=== PATIENT | female | born 1995 | race Two or more races ===

== ENCOUNTER 2022-02-21 11:16 | Emergency (ER) | payer MEDICAID, SELFPAY ==
[2022-02-21 11:24] VITALS: BP 105/66; PULSE 58; RESP 16; TEMP 36.5; O2SAT 96
--- NOTE | 2022-02-21 11:41 | ED_ITS ---
HPI - General Adult General: Chief complaint: Nausea/Vomiting/Diarrhea Stated complaint: , weak and very dizzy Time Seen by Provider: 02/21/22 11:24 History of Present Illness: Patient is a 26-year-old female presenting to the emergency room for evaluation of lower abdominal cramps and nausea/vomiting for the last 3 days. Patient tells me that she recently found out that she was 4 days ago. Since then, patient has noticed lower abdominal pain/cramps. Patient denies any new vaginal plane bleeding or vaginal discharge. Patient also reports nausea vomiting with p.o. intake. Patient tells me that she has not been recording down. Patient denies any sick contacts at home. Denies any fever/chills, diarrhea melena medic easier. Patient denies any urinary complaints at this time. No prior history of renal colic. He denies any flank pain currently. Patient denies any associate chest pain, shortness of breath, headache, vision changes, other focal neurological deficit. Onset:3 days grover Duration:3 days Location:home Severity:mild/moderate Associated symptoms: Reports vomiting; Deny chest pain, dyspnea, nausea, rash or palpitations Review of Systems Const: Denies: fever(s) or chills Eyes: Denies: change in vision ENMT: Denies: mouth pain Card: Denies: chest pain or palpitations Resp: Denies: dyspnea or non-productive cough GI: Reports: abdominal pain (+lower abd pain and cramps), vomiting and other (+decreased po intake); Denies: nausea or diarrhea : Denies: dysuria Musc: Denies: extremity pain Skin/Breast: Denies: rash or new lesions Neuro: Denies: weakness in extremities Psych: Reports: other (Normal mood) Mateo/Lymph: Denies: easy bruising PFSH ED PFSH: Medical History Social History Smoking and tobacco status: never smoked Alcohol intake: never Substance/Drug Use: never Physical Exam Const: COMMON NORMALS: alert HENMT: COMMON NORMALS: atraumatic HEAD & SCALP: atraumatic MOUTH: moist mucous membranes not abnormal Eye: COMMON NORMALS: EOMs intact bilaterally and conjunctivae normal CONJUNCTIVA: Yes conjunctivae normal Neck/C-Spine: COMMON NORMALS: full ROM and supple Resp: COMMON NORMALS: normal respiratory effort and clear to auscultation bilaterally AUSCULTATION: clear to auscultation bilaterally Cardio: COMMON NORMALS: regular rate RATE: regular rate GI: COMMON NORMALS: Soft to palpation and non-tender PALPATION: Yes Soft to palpation OTHER: No focal TTP. NO guarding rebound, guarding, rigidity. No CVA tenderness to percussion. Neg Coleman/Neg McBurney's point tenderness, no suprabupic tenderness to palpation. Extremity: COMMON NORMALS: full ROM Neuro: SENSORIUM/ORIENTATION: Yes alert MOTOR EXAM: No Abnormal motor strength present and Other motor observations present (no focal motor deficits) Psych: COMMON NORMALS: speech normal SPEECH: Yes normal speech MOOD & AFFECT: Yes euthymic mood Course Vital Signs: Vital signs: Vital Signs Temperature 97.7 F 02/21/22 11:24 Pulse Rate 78 02/21/22 13:36 Respiratory Rate 20 H 02/21/22 13:36 Blood Pressure 98/47 02/21/22 13:36 Pulse Oximetry 98 02/21/22 13:36 Oxygen Delivery Me thod 02/21/22 13:36 MDM - General Adult Medical Decision Making 26-year-old female presenting to the emergency room with complaints of lower abdominal pain/cramps, nausea vomiting decreased p.o. intake for the last few days. However, patient is hemodynamically stable without any focal tenderness palpation the abdomen. White count 11 today. Rest of lab within normal. UA shows 3+ ketones any signs of UTI. Patient received IVF and Zofran now was able to tolerate liquid diet difficulty. Ultrasound confirmed IUP at 6 weeks 2 days. Patient has not had any vaginal bleeding will not give RhoGAM today. Patient received IVF today is now able to tolerate clinic without any difficulty. Patient has not had any more nausea or vomiting. Patient reports symptomatically improved with Tylenol in terms of her cramps. I have given patient follow up with our counseling case manager to be seen by our outpatient OB for new . Patient aware of a call from our counseling case manager to schedule for appointment(s) and verbalizes understanding of the importance of following up. Rx tylenol PRN cramps and zofran PRN n/v Disposition: Discharge. Patient counseled regarding diagnostic impression, treatment plan. Patient given ED strict return precautions to return for continuation, worsening, or development of new symptoms. Instructed to f/u w/ PCP regarding symptoms today. Patient verbalized understanding. Lab Data : 02/21/22 11:45 02/21/22 11:45 Radiology Impressions Obstetrics Ultrasound 02/21/22 11:57 IMPRESSION: Single viable intrauterine with a gestational age of 6 weeks 2 days. Laboratory Results WBC 11.0 10^3/uL (4.0-10.0) H 02/21/22 11:45 RBC 4.94 10^6/uL (4.1-5.3) 02/21/22 11:45 Hgb 13.3 g/dL (11.5-15.3) 02/21/22 11:45 Hct 41.5 % (37.0-47.0) 02/21/22 11:45 MCV 84.0 fl (81-99) 02/21/22 11:45 MCH 26.9 pg (28.0-34.0) L 02/21/22 11:45 MCHC 32.0 g/dL (30.0-36.0) 02/21/22 11:45 RDW 13.1 % (12.1-15.1) 02/21/22 11:45 Plt Count 283 10^3/cmm (130-400) 02/21/22 11:45 MPV 11.0 fL (7.4-10.4) H 02/21/22 11:45 Neut % (Auto) 80.2 % 02/21/22 11:45 Lymph % (Auto) 11.9 % 02/21/22 11:45 [place] % (Auto) 6.7 % 02/21/22 11:45 Eos % (Auto) 0.5 % 02/21/22 11:45 Baso % (Auto) 0.2 % 02/21/22 11:45 Neut # (Auto) 8.81 10^3/uL (1.8-7.7) H 02/21/22 11:45 Lymph # (Auto) 1.3 10^3/uL (0.8-4.8) 02/21/22 11:45 [place] # (Auto) 0.7 10^3/uL (0.2-0.9) 02/21/22 11:45 Eos # (Auto) 0.1 10^3/uL (0.0-0.8) 02/21/22 11:45 Baso # (Auto) 0.0 10^3/uL (0.0-0.1) 02/21/22 11:45 Nucleated RBC % (auto) 0 % 02/21/22 11:45 Nucleated RBCs # 0.0 /100WBC 02/21/22 11:45 Sodium 138 mmol/L (136-145) 02/21/22 11:45 Potassium 3.9 mmol/L (3.5-5.1) 02/21/22 11:45 Chloride 99 mmol/L (98-107) 02/21/22 11:45 Carbon Dioxide 23 mmol/L (22-29) 02/21/22 11:45 Anion Gap 19.9 (5-19) H 02/21/22 11:45 BUN 8 mg/dL (6-20) 02/21/22 11:45 Creatinine 0.6 mg/dL (0.5-0.9) 02/21/22 11:45 GFR Calculation 122.8 mL/min (90-130) 02/21/22 11:45 Glucose 68 mg/dL (65-115) 02/21/22 11:45 Calculated Osmolality 283 mOsm/kg (285-295) L 02/21/22 11:45 Calcium 9.5 mg/dL (8.5-10.5) 02/21/22 11:45 Total Bilirubin 0.7 mg/dL (0.15-1.2) 02/21/22 11:45 AST 20 U/L (0-32) 02/21/22 11:45 ALT 18 U/L (0-33) 02/21/22 11:45 Alkaline Phosphatase 57 IU/L (35-105) 02/21/22 11:45 Total Protein 7.5 g/dL (6.6-8.7) 02/21/22 11:45 Albumin 4.5 g/dL (3.5-5.2) 02/21/22 11:45 Globulin 3.0 g/dL (1.3-4.6) 02/21/22 11:45 Lipase 17 U/L (13-60) 02/21/22 11:45 Ser , Semi-Qnt 10615.00 mIU/mL 02/21/22 11:45 Urine Color Yellow (Yellow) 02/21/22 11:45 Urine Appearance Cloudy (CLEAR) 02/21/22 11:45 Urine pH 5 (5-7) 02/21/22 11:45 Ur Specific [place] 1.025 (1.005-1.030) 02/21/22 11:45 Urine Protein Trace (Negative) 02/21/22 11:45 Urine Glucose (UA) Norm (Normal) 02/21/22 11:45 Urine Ketones 3+ (Negative) H 02/21/22 11:45 Urine Blood Neg (Negative) 02/21/22 11:45 Urine Nitrate Negative (Negative) 02/21/22 11:45 Urine Bilirubin Neg (Negative) 02/21/22 11:45 Urine Urobilinogen Norm mg/dL (Negative) 02/21/22 11:45 Ur Leukocyte Esterase Negative (Negative) 02/21/22 11:45 Urine RBC None /hpf (0-2) 02/21/22 11:45 Urine WBC Rare /hpf (0-5) 02/21/22 11:45 Ur Squamous Epith Cells 15-25 /hpf (0-5) H 02/21/22 11:45 Ur Transition Epith Cell 0-4 /hpf 02/21/22 11:45 Amorphous Sediment Not Reportable 02/21/22 11:45 Urine Bacteria Trace /hpf (NONE) 02/21/22 11:45 Urine Mucus 1+ /hpf 02/21/22 11:45 Blood Type A Positive 02/21/22 11:45 Rho(D) Type Positive 02/21/22 11:45 Imaging Data Other Imaging: Radiologist's impression: [address] [address] Ultrasound Report Signed Patient: Susie Doherty Unit #: [id number] : 1995 Age/Sex: 26 / F ADM Date: 02/21/22 Loc: ER Room/Bed: Attending Dr: Ordering Provider/Ordering MD: Kristin Mcmullen MD Date of Service: 02/21/22 Procedure(s): US OB <=14 wk fetus w transvag Accession Number(s): [id number] Report Number: [id number] PROCEDURE INFORMATION: Exam: US , Transvaginal Exam date and time: 02/21/2022 12:29 PM Age: 26 years old Clinical indication: Lmp or gestational age (in weeks): 6w2d by ultrasound; Other: Nausea vomiting; ; Additional info: LABS AND CLINICAL REPORTS: Serum Choriogonadotropin (HCG): 15333 mIU/mL Last menstrual period start date: 12/10/2021 Gestational age (Established): 10 w 3 d Estimated due date (Established): 09/16/2022 TECHNIQUE: Imaging protocol: Real-time transvaginal obstetrical ultrasound of the maternal pelvis with image documentation. Transvaginal imaging was used for better evaluation of the fetus, adnexa, and/or cervix. COMPARISON: No relevant prior studies available. FINDINGS: Gestation: Yolk sac measures 2.5 mm. Single viable intrauterine gestation. heart rate: 120 bpm BIOMETRY: Gestational age (AUA): 6 w 2 d Estimated due date (AUA): 10/15/2022. [place] length (CRL): 5.3 mm. EGA (CRL) is 6 w 2 d MATERNAL: Uterus: There is 5 mm sonolucent cystic structure consistent with a tiny endometrial cyst. Cervix: Cervical length measures 3.1 cm. Right ovary/adnexa: The right ovary could not be identified. Left ovary/adnexa: The left ovary is normal. Intraperitoneal space: No free fluid. US/US OB <=14 wk fetus w transvag IMPRESSION: Single viable intrauterine with a gestational age of 6 weeks 2 days. ? Dictated By: Tony Lebron Signed By: Tony Lebron Signed Date/Time: 02/21/22 1338 DD/ 1229 Discharge Plan Discharge Patient Disposition: Home Clinical Impression: Nausea & vomiting, Pelvic cramping Condition: Stable Prescriptions: New acetaminophen 500 mg tablet 500 mg PO Q6H PRN (Reason: pain) 5 Days Qty: 20 0RF ondansetron 4 mg tablet,disintegrating 4 mg PO TID PRN (Reason: nausea and vomiting) 4 Days Qty: 12 0RF Discharge Orders: Discharge ED (Routine); Ordered 02/21/22 Ordered By: Yijia Mu Discharge Diet: Advance as tolerated Discharge Activity: Increase activity as tolerated Patient Instructions: Pelvic Pain in Women (ED) Activity Restrictions/Additional Instructions: Come back if you have any new or concerning issues. Please come back to the emergency have any vaginal bleeding, discharge, regular contractions, or any new or concerning complaints. Please come back if you have any worsening abdominal pain, fever or chills, nausea or vomiting, diarrhea, blood in the stool, inability hold down liquid or solids, or any new concerning complaints. Coding Level of Care Code ED Forest Products Gatherer for Galig Fwd Exam Comprehensive
--- NOTE | 2022-02-21 11:57 | USR_ITS ---
PROCEDURE INFORMATION: Exam: US , Transvaginal Exam date and time: 02/21/2022 12:29 PM Age: 26 years old Clinical indication: Lmp or gestational age (in weeks): 6w2d by ultrasound; Other: Nausea vomiting; ; Additional info: LABS AND CLINICAL REPORTS: Serum Choriogonadotropin (HCG): 86952 mIU/mL Last menstrual period start date: 12/10/2021 Gestational age (Established): 10 w 3 d Estimated due date (Established): 09/16/2022 TECHNIQUE: Imaging protocol: Real-time transvaginal obstetrical ultrasound of the maternal pelvis with image documentation. Transvaginal imaging was used for better evaluation of the fetus, adnexa, and/or cervix. COMPARISON: No relevant prior studies available. FINDINGS: Gestation: Yolk sac measures 2.5 mm. Single viable intrauterine gestation. heart rate: 120 bpm BIOMETRY: Gestational age (AUA): 6 w 2 d Estimated due date (AUA): 10/15/2022. [place]-Rump length (CRL): 5.3 mm. EGA (CRL) is 6 w 2 d MATERNAL: Uterus: There is 5 mm sonolucent cystic structure consistent with a tiny endometrial cyst. Cervix: Cervical length measures 3.1 cm. Right ovary/adnexa: The right ovary could not be identified. Left ovary/adnexa: The left ovary is normal. Intraperitoneal space: No free fluid. US/US OB <=14 wk fetus w transvag IMPRESSION: Single viable intrauterine with a gestational age of 6 weeks 2 days.
[2022-02-21 12:01] LABS: Basophils % 0.2 %; Eosinophils # 0.1 10^3/uL (0.0-0.8); Eosinophils % 0.5 %; Hematocrit 41.5 % (37.0-47.0); Hemoglobin 13.3 g/dL (11.5-15.3); Lymphocytes # 1.3 10^3/uL (0.8-4.8); Lymphocytes % 11.9 %; Mean Corpuscular Hemoglobin 26.9 pg (28.0-34.0); Monocytes # 0.7 10^3/uL (0.2-0.9); Monocytes % 6.7 %; Neutrophils # 8.81 10^3/uL (1.8-7.7); Neutrophils % 80.2 %; Nucleated Red Blood Cells % 0 %; Platelet Count 283 10^3/cmm (130-400); Red Blood Count 4.94 10^6/uL (4.1-5.3); Red Cell Distribution Width 13.1 % (12.1-15.1)
[2022-02-21] MEDS: ondansetron 2 mg/ML SDV 2 mL 4 MG IVP (12:02)
[2022-02-21] MEDS: sodium chloride 0.9% 1,000 ML 999 ML IV (12:02)
[2022-02-21 12:28] LABS: Alanine Aminotransferase 18 U/L (0-33); Albumin Level 4.5 g/dL (3.5-5.2); Alkaline Phosphatase 57 IU/L (35-105); Anion Gap 19.9 (5-19); Aspartate Amino Transferase 20 U/L (0-32); Blood Urea Nitrogen 8 mg/dL (6-20); Calcium 9.5 mg/dL (8.5-10.5); Carbon Dioxide 23 mmol/L (22-29); Chloride 99 mmol/L (98-107); Glomerular Filtration Rate 122.8 mL/min (90-130); Glucose 68 mg/dL (65-115); Lipase 17 U/L (13-60); Osmolality Calculated 283 mOsm/kg (285-295); Potassium 3.9 mmol/L (3.5-5.1); Sodium 138 mmol/L (136-145); Total Bilirubin 0.7 mg/dL (0.15-1.2); Total Protein 7.5 g/dL (6.6-8.7)
[2022-02-21] MEDS: acetaminophen 500 mg Tablet PO (12:50)
[2022-02-21 13:35] LABS: Blood Urine Neg (Negative); Glucose Urine UA Norm (Normal); Ketones Urine 3+ (Negative); Protein Urine Trace (Negative); Specific Gravity, Urine 1.025 (1.005-1.030); Urine Appearance Cloudy (CLEAR); Urine Color Yellow (Yellow); pH Urine 5 (5-7)
[2022-02-21 13:36] VITALS: BP 98/47; PULSE 78; RESP 20; O2SAT 98
[2022-02-21 13:36] LABS: Add Urine Microscopic? YES; Bilirubin Urine Neg (Negative); Leukocyte Esterase Urine Negative (Negative); Nitrate Urine Negative (Negative); Urobilinogen Urine Norm (Negative)
[2022-02-21 13:37] LABS: Bacteria Urine TRACE /hpf; Mucus Urine 1+ /hpf; Squamous Epithelial Cell Urine 15-25 /hpf (0-5); Transitional Epi Cells Urine 0-4 /hpf; WBC Urine RARE /hpf (0-5)
[2022-02-21 13:38] LABS: Add Urine Culture? No
[2022-02-21 13:50] VITALS: BP 101/62; PULSE 21; RESP 65; O2SAT 98
--- NOTE | 2022-02-24 10:07 | DCPLANNER ---
Addendum entered by Tika Mcdermott 03/12/22 08:03: Patient had a follow up appointment scheduled 03.06.22 with Cheryl Carlin at [facility] - patient did attend appointment. Original Note: inside sales manager had message to schedule a follow up appointment for patient with [facility]. inside sales manager sent patients information to the front office staff at [facility]. Patients information will be printed and reviewed. Clinic will call patient with appointment information.
== END 2022-02-21 13:51 | disposition home or self-care (01) ==
PROVIDERS: Emergency Provider Emergency Medicine
DX: O26.891 Other specified pregnancy related conditions, first trimester (principal); R10.2 Pelvic and perineal pain; R11.2 Nausea with vomiting, unspecified; Z3A.01 Less than 8 weeks gestation of pregnancy
CPT/HCPCS: 76801; 76817; 76830; 80053; 81001; 83690; 84702; 85025; 86900; 96361; 96374; 99285; J2405; J7030

== ENCOUNTER 2022-02-27 09:36 | Emergency (ER) | payer MEDICAID, SELFPAY ==
[2022-02-27 09:48] VITALS: BP 106/63; PULSE 64; RESP 18; TEMP 36.7; O2SAT 98; BMI 16.8
[2022-02-27 11:43] VITALS: BP 97/63; PULSE 61; RESP 16; TEMP 36.7; O2SAT 98
[2022-02-27 12:10] LABS: Add Urine Microscopic? NO; Charge for UA Resulting for Rev
--- NOTE | 2022-02-27 12:15 | W.ED.NAVMDI ---
HPI - Nausea/Vomiting/Diarrhea General: Chief complaint: Nausea/Vomiting/Diarrhea Stated complaint: N/V 7 weeks Time Seen by Provider: 02/27/22 10:10 History of Present Illness: Patient is a 26-year-old female that is currently 7 weeks and comes to the ED with nausea and vomiting. Patient was seen here in the ED for same complaint back on February 21. Ultrasound was performed and it showed a intrauterine around 6 weeks and no other acute findings noted. She was discharged home with a prescription for Zofran. She was unable to get her Zofran prescription filled due to insurance. She says her nausea and vomiting has not improved. She has trouble keeping any food or fluids down for the past 2 weeks. Yesterday she says she threw up 8 times. Denies any abdominal pain, vaginal bleeding, vaginal discharge, dysuria, hematuria or any bowel symptoms. Associated nausea: Yes Associated symtoms: Reports nausea; Denies change in vision, chest pain, dysuria, fatigue, headache(s) or palpitations Review of Systems Const: Denies: fever(s), chills or fatigue Eyes: Denies: change in vision or eye discomfort ENMT: Denies: throat pain, odynophagia, nasal discharge or nasal congestion Card: Denies: chest pain, palpitations, edema, swelling of feet/ankles, dyspnea on exertion or orthopnea Resp: Denies: dyspnea, productive cough or non-productive cough GI: Reports: nausea and vomiting; Denies: abdominal pain, diarrhea, constipation or hematochezia : Denies: flank pain, dysuria or hematuria Musc: Denies: neck pain, back pain or extremity swelling Skin/Breast: Denies: rash or new lesions Neuro: Denies: headache(s), numbness in extremities or weakness in extremities PFSH ED PFSH: Medical History Social History Smoking and tobacco status: never smoked Alcohol intake: never Female Reproductive History: Date of last menstrual period: 01/09/22 Physical Exam Const: COMMON NORMALS: no acute distress, patient oriented x3, healthy appearing and alert GENERAL APPEARANCE: cooperative HENMT: COMMON NORMALS: normocephalic HEAD & SCALP: normocephalic MOUTH: Normal oral and palatal mucosa present THROAT: posterior oropharynx normal and uvula midline Neck/C-Spine: COMMON NORMALS: supple GENERAL: Yes normal visual inspection Resp: COMMON NORMALS: normal respiratory effort, No retractions, No use of accessory muscles and clear to auscultation bilaterally AUSCULTATION: clear to auscultation bilaterally Cardio: COMMON NORMALS: regular rate, regular rhythm, S1 normal heart sound present, S2 normal heart sound present, No gallops present (Cardio), No clicks present (Cardio), No murmurs present (Cardio) and Peripheral pulses 2+ throughout RATE: regular rate RHYTHM: regular rhythm HEART SOUNDS: S1 normal heart sound present and S2 normal heart sound present PERIPHERAL PULSES: Peripheral pulses 2+ throughout GI: COMMON NORMALS: Normal to inspection, nondistended, normoactive bowel sounds present, Soft to palpation, non-tender and no masses PALPATION: Yes Soft to palpation OTHER: Patient's abdomen is nontender to palpation. : COMMON NORMALS: Yes no CVA tenderness BLADDER/KIDNEY EXAM: Yes no CVA tenderness Back/Pelvis: COMMON NORMALS: no CVA tenderness Extremity: COMMON NORMALS: normal to inspection Neuro: COMMON NORMALS: patient oriented x3 SENSORIUM/ORIENTATION: Yes alert GAIT: Yes Normal gait present Skin: GENERAL SKIN EXAM: dry skin Course Vital Signs: Vital signs: Vital Signs Temperature 98.0 F 02/27/22 13:20 Pulse Rate 64 02/27/22 14:50 Respiratory Rate 18 02/27/22 14:50 Blood Pressure 98/61 02/27/22 14:50 Pulse Oximetry 100 02/27/22 14:50 Oxygen Delivery Me thod 02/27/22 14:50 MDM - Nausea/Vomiting/Diarrhea Medical Decision Making Patient is a 26-year-old female that is currently 7 weeks comes to the ED with nausea and vomiting. She was seen here in the ED for same complaint back on February 21 and ultrasound was performed and it showed a healthy intrauterine 6-week old fetus. She was discharged home with a prescription for Zofran. Patient says she has not been able to get her Zofran filled due to insurance. She continues having some nausea and vomiting. Denies any vaginal bleeding, abdominal pain, fevers, dysuria or hematuria. Vitals are stable here in the ED. Patient appears nontoxic in no acute distress or pain. She has no abdominal tenderness to palpation throughout her abdomen. CBC and CMP were unremarkable. Beta hCG quant of 105,502 which is up from 50,085 on February 21. UA showed no signs of UTI. Patient was given 1 L of IV fluids and some nausea meds and her symptoms improved. She was able to tolerate p.o. fluids and had no episodes of emesis here in the ED. She was stable for discharge home and sent home with a prescription for promethazine. 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 Return to ED precautions given. Patient understood and agreed with plan. Lab Data I reviewed the patient's lab results. : 02/27/22 12:16 02/27/22 12:16 Laboratory Results WBC 10.1 10^3/uL (4.0-10.0) H 02/27/22 12:16 RBC 4.87 10^6/uL (4.1-5.3) 02/27/22 12:16 Hgb 13.0 g/dL (11.5-15.3) 02/27/22 12:16 Hct 41.3 % (37.0-47.0) 02/27/22 12:16 MCV 84.8 fl (81-99) 02/27/22 12:16 MCH 26.7 pg (28.0-34.0) L 02/27/22 12:16 MCHC 31.5 g/dL (30.0-36.0) 02/27/22 12:16 RDW 12.9 % (12.1-15.1) 02/27/22 12:16 Plt Count 265 10^3/cmm (130-400) 02/27/22 12:16 MPV 10.5 fL (7.4-10.4) H 02/27/22 12:16 Neut % (Auto) 80.8 % 02/27/22 12:16 Lymph % (Auto) 12.9 % 02/27/22 12:16 [place] % (Auto) 5.7 % 02/27/22 12:16 Eos % (Auto) 0.2 % 02/27/22 12:16 Baso % (Auto) 0.2 % 02/27/22 12:16 Neut # (Auto) 8.18 10^3/uL (1.8-7.7) H 02/27/22 12:16 Lymph # (Auto) 1.3 10^3/uL (0.8-4.8) 02/27/22 12:16 [place] # (Auto) 0.6 10^3/uL (0.2-0.9) 02/27/22 12:16 Eos # (Auto) 0.0 10^3/uL (0.0-0.8) 02/27/22 12:16 Baso # (Auto) 0.0 10^3/uL (0.0-0.1) 02/27/22 12:16 Nucleated RBC % (auto) 0 % 02/27/22 12:16 Nucleated RBCs # 0.0 /100WBC 02/27/22 12:16 Sodium 136 mmol/L (136-145) 02/27/22 12:16 Potassium 3.6 mmol/L (3.5-5.1) 02/27/22 12:16 Chloride 98 mmol/L (98-107) 02/27/22 12:16 Carbon Dioxide 21 mmol/L (22-29) L 02/27/22 12:16 Anion Gap 20.6 (5-19) H 02/27/22 12:16 BUN 10 mg/dL (6-20) 02/27/22 12:16 Creatinine 0.5 mg/dL (0.5-0.9) 02/27/22 12:16 GFR Calculation 151.6 mL/min (90-130) H 02/27/22 12:16 Glucose 90 mg/dL (65-115) 02/27/22 12:16 Calculated Osmolality 281 mOsm/kg (285-295) L 02/27/22 12:16 Calcium 9.7 mg/dL (8.5-10.5) 02/27/22 12:16 Total Bilirubin 0.5 mg/dL (0.15-1.2) 02/27/22 12:16 AST 17 U/L (0-32) 02/27/22 12:16 ALT 14 U/L (0-33) 02/27/22 12:16 Alkaline Phosphatase 55 U/L (35-105) 02/27/22 12:16 Total Protein 7.8 g/dL (6.6-8.7) 02/27/22 12:16 Albumin 4.5 g/dL (3.5-5.2) 02/27/22 12:16 Globulin 3.3 g/dL (1.3-4.6) 02/27/22 12:16 Lipase 12 U/L (13-60) L 02/27/22 12:16 Ser , Semi-Qnt 338755.00 mIU/mL 02/27/22 12:16 Urine Color Yellow (Yellow) 02/27/22 12:04 Urine Appearance Clear (CLEAR) 02/27/22 12:04 Urine pH 5 (5-7) 02/27/22 12:04 Ur Specific [place] 1.030 (1.005-1.030) 02/27/22 12:04 Urine Protein Neg (Negative) 02/27/22 12:04 Urine Glucose (UA) Norm (Normal) 02/27/22 12:04 Urine Ketones 3+ (Negative) H 02/27/22 12:04 Urine Blood Neg (Negative) 02/27/22 12:04 Urine Nitrate Negative (Negative) 02/27/22 12:04 Urine Bilirubin Neg (Negative) 02/27/22 12:04 Urine Urobilinogen Norm mg/dL (Negative) 02/27/22 12:04 Ur Leukocyte Esterase Negative (Negative) 02/27/22 12:04 Discharge Plan Discharge Patient Disposition: Home Clinical Impression: Nausea and vomiting in Condition: Stable Prescriptions: New promethazine 6.25 mg/5 mL syrup 25 mg PO TID PRN (Reason: nausea and vomiting) Qty: 473 0RF Discharge Orders: Discharge ED (Routine); Ordered 02/27/22 Ordered By: Stephan Moran Discharge Diet: Regular Discharge Activity: Increase activity as tolerated Patient Instructions: Nausea and Vomiting in (ED) Activity Restrictions/Additional Instructions: Follow-up with medical provider as directed in the next 5 to 7 days reevaluation. Take medications as prescribed. Return to the ER or your medical provider if condition worsens. Please read and understand discharge instructions. Thank you for choosing [facility] for your healthcare needs today. Please realize this is an emergency room and that we are providing you with a medical screening exam and this may not be complete and all inclusive of all the testing and or work up that you may need to determine your ailment or severity of your illness. It is very important that you follow up as instructed or that you return to the Emergency Department should you have concerns or if your condition changes or worsens in any way. Coding Level of Care Code ED Post Commander for Clementine Fwrosalba Exam Comprehensive
[2022-02-27 12:17] LABS: Bilirubin Urine Neg (Negative); Blood Urine Neg (Negative); Glucose Urine UA Norm (Normal); Ketones Urine 3+ (Negative); Leukocyte Esterase Urine Negative (Negative); Nitrate Urine Negative (Negative); Protein Urine Neg (Negative); Urine Appearance Clear (CLEAR); Urine Color Yellow (Yellow); Urobilinogen Urine Norm (Negative); pH Urine 5 (5-7)
[2022-02-27 12:22] LABS: Basophils % 0.2 %; Eosinophils % 0.2 %; Hematocrit 41.3 % (37.0-47.0); Lymphocytes # 1.3 10^3/uL (0.8-4.8); Lymphocytes % 12.9 %; Mean Corpuscular HGB Conc 31.5 g/dL (30.0-36.0); Mean Corpuscular Hemoglobin 26.7 pg (28.0-34.0); Mean Corpuscular Volume 84.8 fl (81-99); Mean Platelet Volume 10.5 fL (7.4-10.4); Monocytes # 0.6 10^3/uL (0.2-0.9); Monocytes % 5.7 %; Neutrophils # 8.18 10^3/uL (1.8-7.7); Neutrophils % 80.8 %; Nucleated Red Blood Cells % 0 %; Platelet Count 265 10^3/cmm (130-400); Red Blood Count 4.87 10^6/uL (4.1-5.3); Red Cell Distribution Width 12.9 % (12.1-15.1); White Blood Count 10.1 10^3/uL (4.0-10.0)
[2022-02-27] MEDS: sodium chloride 0.9% 1,000 ML 999 ML IV (12:30)
[2022-02-27] MEDS: metoclopramide 5 mg/mL SDV 2 mL 10 MG IVP (12:31)
[2022-02-27 13:02] LABS: Alanine Aminotransferase 14 U/L (0-33); Albumin Level 4.5 g/dL (3.5-5.2); Alkaline Phosphatase 55 U/L (35-105); Anion Gap 20.6 (5-19); Aspartate Amino Transferase 17 U/L (0-32); Blood Urea Nitrogen 10 mg/dL (6-20); Calcium 9.7 mg/dL (8.5-10.5); Carbon Dioxide 21 mmol/L (22-29); Chloride 98 mmol/L (98-107); Globulin 3.3 g/dL (1.3-4.6); Glomerular Filtration Rate 151.6 mL/min (90-130); Glucose 90 mg/dL (65-115); Lipase 12 U/L (13-60); Osmolality Calculated 281 mOsm/kg (285-295); Potassium 3.6 mmol/L (3.5-5.1); Sodium 136 mmol/L (136-145); Total Bilirubin 0.5 mg/dL (0.15-1.2); Total Protein 7.8 g/dL (6.6-8.7)
[2022-02-27] MEDS: diphenhydrAMINE 50 mg/mL SDV 1mL IVP (13:13)
[2022-02-27 13:20] VITALS: BP 98/55; PULSE 56; RESP 16; TEMP 36.7; O2SAT 98
[2022-02-27 14:50] VITALS: BP 98/61; PULSE 64; RESP 18; O2SAT 100
== END 2022-02-27 14:52 | disposition home or self-care (01) ==
PROVIDERS: Emergency Provider Physician Assistant
DX: O26.891 Other specified pregnancy related conditions, first trimester (principal); R11.2 Nausea with vomiting, unspecified; Z3A.01 Less than 8 weeks gestation of pregnancy
CPT/HCPCS: 80053; 81003; 83690; 84702; 85025; 96361; 96374; 96375; 99284; J1200; J2765; J7030

== ENCOUNTER → 2022-03-27 15:09 | Outpatient (BNVA) | payer MEDICAID, SELFPAY | PROVIDERS: Visit Provider Obstetrics & Gynecology | DX: Z34.90 Encounter for supervision of normal pregnancy, unspecified, unspecified trimester (principal) | CPT/HCPCS: 80307; 84315; 85025; 86592; 86762; 86803; 86850; 86900; 87086; 87340; 87491; 87591; 87661; 87806; 88175 ==

== ENCOUNTER 2022-05-07 09:27 | Outpatient (CLI) | payer MEDICAID, SELFPAY | END 2022-05-07 09:28 | disposition home or self-care (01) | LOC: LAB 09:29 | PROVIDERS: Visit Provider Obstetrics & Gynecology | DX: Z34.90 Encounter for supervision of normal pregnancy, unspecified, unspecified trimester (principal) | CPT/HCPCS: 36415; 81000 ==

== ENCOUNTER → 2022-06-03 15:00 | Outpatient (BNVA) | payer MEDICAID, SELFPAY | PROVIDERS: Visit Provider Obstetrics & Gynecology | DX: Z34.90 Encounter for supervision of normal pregnancy, unspecified, unspecified trimester (principal) | CPT/HCPCS: 81000; 87491; 87591; 87661 ==

== ENCOUNTER → 2022-06-25 14:30 | Outpatient (BNVA) | payer MEDICAID, SELFPAY | PROVIDERS: Visit Provider Obstetrics & Gynecology | DX: Z34.90 Encounter for supervision of normal pregnancy, unspecified, unspecified trimester (principal); R82.90 Unspecified abnormal findings in urine | CPT/HCPCS: 81000; 84443; 87086 ==

== ENCOUNTER → 2022-07-29 10:44 | Outpatient (BNVA) | payer MEDICAID, SELFPAY | PROVIDERS: Visit Provider Obstetrics & Gynecology | DX: Z34.90 Encounter for supervision of normal pregnancy, unspecified, unspecified trimester (principal) | CPT/HCPCS: 82950; 84443; 85025; 87086 ==

== ENCOUNTER 2022-08-03 08:48 | Outpatient (CLI) | payer MEDICAID, SELFPAY ==
[2022-08-03 10:04] LABS: Glucose Fasting Gestational 62 mg/dL (65-115)
[2022-08-03 10:57] LABS: Glucose 1 Hour 208 mg/dL
[2022-08-03 12:18] LABS: Glucose 2 Hour 257 mg/dL
[2022-08-03 13:14] LABS: Glucose 3 Hour 206 mg/dL
== END 2022-08-03 08:49 | disposition home or self-care (01) ==
PROVIDERS: Nurse Practitioner Women's Health; Visit Provider Obstetrics & Gynecology
DX: Z34.90 Encounter for supervision of normal pregnancy, unspecified, unspecified trimester (principal)
CPT/HCPCS: 36415; 82951; 82952

== ENCOUNTER → 2022-08-13 08:29 | Outpatient (BNVA) | payer MEDICAID, SELFPAY | PROVIDERS: Visit Provider Nurse Practitioner Women's Health | DX: Z34.90 Encounter for supervision of normal pregnancy, unspecified, unspecified trimester (principal); Z87.51 Personal history of pre-term labor; O21.9 Vomiting of pregnancy, unspecified; F12.90 Cannabis use, unspecified, uncomplicated; F41.9 Anxiety disorder, unspecified; F32.A Depression, unspecified | CPT/HCPCS: 81000 ==

== ENCOUNTER 2022-08-27 11:57 | Outpatient (CLI) | payer MEDICAID, SELFPAY ==
[2022-08-27 12:03] VITALS: BMI 22.8
[2022-08-27 12:37] VITALS: BP 97/61; PULSE 68
[2022-08-27 12:43] LABS: Actim Prom Negative
[2022-08-27 12:53] VITALS: BP 97/61; PULSE 68; RESP 14
== END 2022-08-27 13:00 | disposition home or self-care (01) ==
LOC: OPOB 11:58 → OBGYN 12:53
PROVIDERS: Visit Provider Obstetrics & Gynecology
DX: O26.899 Other specified pregnancy related conditions, unspecified trimester (principal); Z3A.00 Weeks of gestation of pregnancy not specified; N89.8 Other specified noninflammatory disorders of vagina
CPT/HCPCS: 59025; 84112; 84315; 87086; 99211

== ENCOUNTER 2022-09-06 22:40 | Outpatient (CLI) | payer MEDICAID, SELFPAY ==
[2022-09-06] VITALS (7 sets, daily range): BP systolic 102–103; BP diastolic 64–66; PULSE 69–88; RESP 16; TEMP 36.1; O2SAT 98–99; BMI 23.6
[2022-09-06 23:52] LABS: Nitrazine Paper, PH Negative
[2022-09-07] VITALS (8 sets, daily range): BP systolic 103–107; BP diastolic 69–73; PULSE 72–82; O2SAT 98–100
[2022-09-07] MEDS: lactated ringers 1,000 ML 999 ML IV (00:01)
[2022-09-07] MEDS: NIFEdipine 10 mg Capsule PO (00:28)
[2022-09-07 00:30] LABS: Bilirubin Urine Neg (Negative); Blood Urine Neg (Negative); Glucose Urine UA Norm (Normal); Ketones Urine 1+ (Negative); Leukocyte Esterase Urine Negative (Negative); Nitrate Urine Negative (Negative); Protein Urine Neg (Negative); Urine Appearance Clear (CLEAR); Urine Color Yellow (Yellow); Urobilinogen Urine Neg (Negative); pH Urine 6.5 (5-7)
[2022-09-07 00:31] LABS: Add Urine Culture? No; Amphetamines Screen Urine Negative (Negative); Bacteria Urine 1+ /hpf; Barbiturates Screen Urine Negative (Negative); Benzodiazepines Screen Urine Negative (Negative); Cocaine Screen Urine Negative (Negative); Mucus Urine 1+ /hpf; Opiate Screen Urine Negative (Negative); PCP Screen Urine Negative (Negative); RBC Urine 0-4 /hpf (0-2); Squamous Epithelial Cell Urine 15-25 /hpf (0-5); THC Screen Urine Positive (Negative); WBC Urine 0-4 /hpf (0-5)
[2022-09-07 00:43] LABS: Actim Prom Negative
--- NOTE | 2022-09-07 01:35 | P.TNLD_ITS ---
OB L&D Triage Visit Information: Date of evaluation: 09/07/22 Comments/Additional reason(s) for visit: 27yo female at 34wk IUP in c/o uterine contractions onset this am, pain 4- 5/10. Pt denies LOF or vaginl bleeding. EFM- Ca 1 with contractions q 4-6 , spaced out to being not painful to pt after dose of Procardia 10mg po. UA- reviewed and pt advised against using Marijuanadue to unknown affects. PE- Cervix 1cm/20%/-3. Evaluation: Baseline heart rate: 140 monitor accelerations: Present 15x15 monitor decelerations: None Cervical dilation (cm): 1 Cervical effacement (%): 20 station: -3 Laboratory results: Laboratory Tests 09/07/22 09/07/22 09/07/22 00:10 00:10 00:20 Insulin-like GF I Negative Urine Color Yellow Urine Appearance Clear Urine pH 6.5 Ur Specific Gravit y 1.020 Urine Protein Neg Urine Glucose (UA) Norm Urine Ketones 1+ H Urine Blood Neg Urine Nitrate Negative Urine Bilirubin Neg Urine Urobilinogen Neg Ur Leukocyte Brigette ase Negative Urine RBC 0-4 H Urine WBC 0-4 H Ur Squamous Epith Cells 15-25 H Amorphous Sediment Not Reportable Urine Bacteria 1+ H Urine Mucus 1+ Urine Opiates Scre en Negative Ur Barbiturates Sc reen Negative Ur Phencyclidine S crn Negative Ur Amphetamines Sc reen Negative U Benzodiazepines Scrn Negative Urine Cocaine Scre en Negative U Marijuana (THC) Screen Positive H Vital signs: Vital Signs - 24 hr 09/06/22 23:01 09/06/22 23:00 09/06/22 23:30 Temperature 97.0 F L Pulse Rate 80 88 Respiratory Rate Blood Pressure 103/66 102/64 Pulse Oximetry Oxygen Delivery Me thod 09/06/22 23:45 09/06/22 23:50 09/06/22 23:55 Temperature Pulse Rate 84 69 76 Respiratory Rate Blood Pressure Pulse Oximetry 98 99 98 Oxygen Delivery Me thod 09/07/22 00:00 09/07/22 00:04 09/07/22 00:05 Temperature Pulse Rate 75 82 77 Respiratory Rate Blood Pressure 107/73 Pulse Oximetry 98 98 Oxygen Delivery Me thod 09/07/22 00:10 09/07/22 00:15 09/07/22 00:20 Temperature Pulse Rate 75 73 72 Respiratory Rate Blood Pressure Pulse Oximetry 99 98 100 Oxygen Delivery Me thod 09/07/22 00:25 09/07/22 00:34 09/06/22 23:32 Temperature Pulse Rate 81 73 Respiratory Rate 16 Blood Pressure 103/69 Pulse Oximetry 99 Oxygen Delivery Me thod 09/06/22 23:32 Temperature Pulse Rate Respiratory Rate 16 Blood Pressure Pulse Oximetry Oxygen Delivery Me thod Room Air Care MAGALY Calculator Estimated Delivery Date Method Current WG Current Estimate 10/15/22 Ultrasound #1 34w 4d Final Diagnosis Final Diagnosis (1) Supervision of normal : Plan: A. contractions at 34wks P. IV hydration Procardia 10mg PO DC to home and keep f/u apptmt on Wednesday. Return if pain or ROM. Status: Acute Code(s): Z34.90 - Encounter for supervision of normal , unspecified, unspecified trimester Coding Level of Care Code Acute Code for Chg Fwd Diagnoses Supervision of normal Z34.90
== END 2022-09-07 01:58 | disposition home or self-care (01) ==
LOC: OPOB 22:48 → OBGYN 22:50
PROVIDERS: Visit Provider Obstetrics & Gynecology
DX: O47.9 False labor, unspecified (principal); N89.8 Other specified noninflammatory disorders of vagina
CPT/HCPCS: 12345; 36415; 59025; 80306; 81001; 83986; 84112; 99211; J7120

== ENCOUNTER → 2022-09-08 10:30 | Outpatient (BNVA) | payer MEDICAID, SELFPAY | PROVIDERS: Visit Provider Nurse Practitioner Women's Health | DX: Z34.90 Encounter for supervision of normal pregnancy, unspecified, unspecified trimester (principal); Z87.51 Personal history of pre-term labor | CPT/HCPCS: 81000; 85025 ==

== ENCOUNTER → 2022-09-23 09:50 | Outpatient (BNVA) | payer MEDICAID, SELFPAY | PROVIDERS: Visit Provider Obstetrics & Gynecology | DX: Z34.90 Encounter for supervision of normal pregnancy, unspecified, unspecified trimester (principal); R82.90 Unspecified abnormal findings in urine | CPT/HCPCS: 81000; 87081; 87086 ==

== ENCOUNTER 2022-09-27 22:00 | Inpatient (IN) | payer MEDICAID, SELFPAY ==
[2022-09-27] VITALS (54 sets, daily range): BP systolic 87–119; BP diastolic 52–80; PULSE 63–99; RESP 16–17; O2SAT 88–97; BMI 24.0
[2022-09-27 13:21] LABS: Nitrazine Paper, PH Negative
[2022-09-27 13:28] LABS: Actim Prom Negative
[2022-09-27 18:00] LABS: Basophils % 0.1 %; Eosinophils % 0.1 %; Hemoglobin 11.4 g/dL (11.5-15.3); Lymphocytes # 0.5 10^3/uL (0.8-4.8); Lymphocytes % 4.8 %; Mean Corpuscular HGB Conc 30.8 g/dL (30.0-36.0); Mean Corpuscular Hemoglobin 24.5 pg (28.0-34.0); Mean Corpuscular Volume 79.4 fl (81-99); Monocytes # 0.5 10^3/uL (0.2-0.9); Monocytes % 5.1 %; Neutrophils # 8.57 10^3/uL (1.8-7.7); Neutrophils % 89.5 %; Nucleated Red Blood Cells % 0 %; Platelet Count 254 10^3/cmm (130-400); Red Blood Count 4.66 10^6/uL (4.1-5.3); Red Cell Distribution Width 14.1 % (12.1-15.1); White Blood Count 9.6 10^3/uL (4.0-10.0)
[2022-09-27] MEDS: fentaNYL 50 mcg/mL INJ 2mL IVP (18:13)
[2022-09-27] MEDS: dextrose 5%-lactated ringers 1,000 ML 125 ML IV (18:15)
--- NOTE | 2022-09-27 18:31 | P.HP_ITS ---
Providers/Chief Complaint Admitting Physician: Abida GONGORA Primary CIRCUIT BREAKER MECHANIC: Ria LOFTON Chief Complaint: Abdominal pain HPI CIRCUIT BREAKER MECHANIC History of Present Illness Susie Doherty is a 27 year old female at 37.3 wk IUP, MAGALY 10/15/22 admitted after OBS with painful contractions. Cervix initially 1cm/50% then progressed to 3cm/70%/-[address] Rollins. hx unremarkable. Present Details : 3 Para: 2 Review of Systems General: Reports: 10 or more systems reviewed and unremarkable except in HPI and below Medications/Allergies Home Medications Medication Instructions Recorded Confirmed Last Taken Type PNV 158-iron 13.5 mg-folic 0.5 cap PO 08/13/22 09/23/22 09/06/22 History mg-omega 3-dha 150 mg-epa-fish capsule (Natavi PNV) ferrous sulfate 325 mg (65 mg 325 mg PO DAILY 09/23/22 09/23/22 Unknown History iron) tablet Allergies Allergy/AdvReac Type Severity Reaction Status Date / Time reglan AdvReac Intermediate ADR-Agitate Uncoded 09/23/22 10:03 d PFSH CIRCUIT BREAKER MECHANIC PFSH: Medical History No pertinent past medical history neghx: htn,dm,thyroid,dvt/pe PCP: None Surgical History Hx of vaginal surgery (~2015) scar tissue removed due to pain 6 months . Family History Mother Diabetes Father Diabetes Grandmother Diabetes Maternal and Paternal Grandfather Diabetes Maternal and Paternal Denies family history of Colon cancer Ovarian cancer Heart disease Hypercholesteremia Breast cancer Hypertension Uterine cancer Thyroid disease Stroke History History History 3 Term 2 0 Miscarriages/Ectopic 0 Living Children 2 Care MAGALY Calculator Estimated Delivery Date Method Current WG Current Estimate 10/15/22 Ultrasound #1 37w 3d Vitals/I&O/Wt Last Vital Signs Pulse 98 09/27/22 17:36 Resp 16 09/27/22 18:13 BP 101/69 09/27/22 17:36 Weight last 48 hrs Weight 57.606 kg Physical Exam Const: COMMON NORMALS: no acute distress, patient oriented x3, healthy appearing, alert and well nourished Resp: COMMON NORMALS: normal respiratory effort and clear to auscultation bilaterally Cardio: COMMON NORMALS: regular rate and regular rhythm Back/Pelvis: OTHER: Pelvic exam?cervix 3 cm / 70%/-2 vertex presentation Extremity: COMMON NORMALS: no clubbing, cyanosis or edema Neuro: COMMON NORMALS: moves all extremities and deep tendon reflexes 2+ bilaterally Data 09/27/22 17:45 A&P Assessment and plan (1) Supervision of normal : A. 1. 27-year-old at 37.3 weeks gestation in early labor 2. GBS negative 3. History of nicotine use through vaping. 4. History of marijuana use P. 1. Admit to labor and delivery for management of labor (2) Gestational diabetes: (3) Marijuana use: (4) Anxiety and depression: (5) History of labor: Attestations Medical Necessity Statement*: Patient admitted to labor and delivery for m anagement of labor Coding Level of Care Code Acute Code for Chg Fwd Diagnoses Supervision of normal Z34.90 Gestational diabetes O24.419 Marijuana use F12.90 Anxiety and depression F41.9; F32.A History of labor Z87.51
[2022-09-27 18:56] LABS: Amphetamines Screen Urine Negative (Negative); Barbiturates Screen Urine Negative (Negative); Benzodiazepines Screen Urine Negative (Negative); Cocaine Screen Urine Negative (Negative); Opiate Screen Urine Negative (Negative); PCP Screen Urine Negative (Negative); THC Screen Urine Positive (Negative)
[2022-09-27 19:43] LABS: Glucose Point of Care 71 mg/dL (70-110)
--- NOTE | 2022-09-27 20:31 | ANES.PREANE2 ---
Pre-Anesthetic Assessment Height/Weight: Height 1.55 m Weight 57.606 kg Pulse Resp BP Pulse Ox 75 16 113/76 97 09/27/22 20:29 09/27/22 18:13 09/27/22 20:25 09/27/22 20:29 Preop Diagnosis: Labor pain JAROD Was Beta Campos taken within 24 hours: N/A Was Clonidine taken within 24 hours: N/A Social Vaps Exam alert, oriented x 3, clear to auscultation bilaterally and regular rate & rhythm Airway Submandibular: within normal limits Cervical ROM: within normal limits Mallampati: Class II Dentition: full Pulmonary None reported CV/HEM None reported None reported Hepatic None reported GI None reported Metabolic None reported Musc/skel Scoliosis Neuropsych None reported Anesthetic Plan ASA status: 2 Anesthesia: Anesthesia Evaluation and Regional (specify below) (JAROD) Risk of > 500 ml blood loss (7ml/kg in children): No Medications/Allergies Home Medications Medication Instructions Recorded Confirmed Last Taken Type PNV 158-iron 13.5 mg-folic 0.5 1 cap PO DAILY 08/13/22 09/27/22 09/26/22 History mg-omega 3-dha 150 mg-epa-fish capsule (Natavi PNV) ferrous sulfate 325 mg (65 mg 325 mg PO DAILY 09/23/22 09/27/22 09/26/22 History iron) tablet Allergies Allergy/AdvReac Type Severity Reaction Status Date / Time metoclopramide Allergy ADR-Agitate Verified 09/27/22 19:36 d reglan AdvReac Intermediate ADR-Agitate Uncoded 09/23/22 10:03 d Current Medications Generic Name Dose Route Start Last Admin Trade Name Aroldoq PRN Reason Stop Dose Admin Fentanyl 25 - 100 mcg 09/27/22 17:26 09/27/22 18:13 Fentanyl 50 Mcg/Ml Inj 2ml IVP 25 mcg Q1H PRN Administration SEVERE PAIN Dextrose/Lactated Ringer's 1,000 mls @ 125 mls/hr 09/27/22 17:30 09/27/22 18:15 Dextrose 5%-Lactated Ringers IV 125 mls/hr .Q8H KAYE Administration PFSH Anesthesia Medical History No pertinent past medical history neghx: htn,dm,thyroid,dvt/pe PCP: None Surgical History Hx of vaginal surgery (~2015) scar tissue removed due to pain 6 months . Family History Mother Diabetes Father Diabetes Grandmother Diabetes Maternal and Paternal Grandfather Diabetes Maternal and Paternal Denies family history of Colon cancer Ovarian cancer Heart disease Hypercholesteremia Breast cancer Hypertension Uterine cancer Thyroid disease Stroke Female Reproductive History : 3 Data Anesthesia 09/27/22 17:45 Short CBC 09/27/22 Range/Units 17:45 WBC 9.6 (4.0-10.0) 10^3/uL Hgb 11.4 L (11.5-15.3) g/dL Hct 37.0 (37.0-47.0) % MCV 79.4 L (81-99) fl Plt Count 254 (130-400) 10^3/cmm Neut % (Auto) 89.5 % Neut # (Auto) 8.57 H (1.8-7.7) 10^3/uL Cardiac Studies: No Data to Display
--- NOTE | 2022-09-27 20:33 | P.ANES_ITS ---
Documented by User: Kye Hamilton Jr, SCALE TECHNICIAN 09/27/22 21:56 Anesthesia Procedures Procedure/Date: 09/27/22 Epidural: Time Out Performed: Yes Consents Signed: Procedure Consent Consent: requested by attending/covering physician, from patient, risks and benefits reviewed and patient agrees to proceed Lumbar Level: L3-L4 Epidural position: sitting Epidural procedure: sterile prep of area, 1% lidocaine to numb the area, 18 g needle, neg for paresthesia, test dose given, 1.5% xylocaine 1:200k epi (4cc), 0.2% Ropivacaine bolus ml (4cc and Fentanyl 100 mcg), placed PCEA, no systemic response, sterile dressing applied and 0.2% Ropiavacaine @ mls/hr (11cc/hour) Additional Comments: Pt tolerated well Other Information: Documented by User: Malcom hSukla 09/28/22 03:23 Anesthesia Procedures Procedure/Date: 09/28/22
[2022-09-27] MEDS: ondansetron 2 mg/ML SDV 2 mL 4 MG IVP (21:24)
[2022-09-27] MEDS: oxytocin 30 UNIT/500 ML BAG IV (23:07)
--- NOTE | 2022-09-27 23:11 | PM.OBGYPN ---
BOWLING OR SKATING FRONT DESK CLERK Subjective Subjective: Interval history: Nursing staff report veg exam patient 7 cm dilated, has agreed to Pitocin augmentation. Will reexamine in 1 hour and AROM at that time. Labor: Station: -3 Amniotic Membrane Status: Intact Monitor Mode: External Contraction Pattern: Irregular Vitals/I&O/Wt Last Vital Signs Pulse 70 09/27/22 22:55 Resp 16 09/27/22 18:13 BP 96/58 09/27/22 22:55 Pulse Ox 96 09/27/22 20:54 O2 Del Method 09/27/22 21:49 Weight last 48 hrs Weight 57.606 kg Physical Exam Urinary Catheter Management: Lebron: Cath Placed During This Visit: yes Urinary Catheter Date of Insertion: 09/27/22 Urinary Catheter Time of Insertion: 21:02 Data 09/27/22 17:45 A&P Assessment and plan (1) Supervision of normal : A. 37.5-week IUP in active labor P. Continue present care, augmentation of labor with Pitocin. (2) Gestational diabetes: Attestations Medical Necessity Statement*: Management of labor Coding Level of Care Code Acute Code for Chg Fwd Diagnoses Supervision of normal Z34.90 Gestational diabetes O24.419
[2022-09-28] VITALS (36 sets, daily range): BP systolic 95–123; BP diastolic 56–79; PULSE 60–136; RESP 15–18; TEMP 36–37.4; O2SAT 93–98
--- NOTE | 2022-09-28 00:19 | ANES.PROC ---
Documented by User: Kye Hamilton Jr, CRNA 09/28/22 00:22 Anesthesia Procedures Procedure/Date: 09/28/22 Other Information: Pt with breakthrough pain. Lido 1% with Fentanyl 100mcg given without relief. Pt agreed to restart epidural. Epid had been pulled back and was out of space. Documented by User: Malcom Shukla 09/28/22 03:23 Anesthesia Procedures Procedure/Date: 09/28/22
--- NOTE | 2022-09-28 00:22 | ANES.PROC ---
Documented by User: Kye Hamilton Jr, CIVIL ENGINEER LAND DEVELOPMENT 09/28/22 00:25 Anesthesia Procedures Procedure/Date: 09/28/22 Epidural: Time Out Performed: Yes Consents Signed: Procedure Consent Consent: from patient, risks and benefits reviewed and patient agrees to proceed Lumbar Level: L2-L3 Epidural position: sitting Epidural procedure: sterile prep of area, 1% lidocaine to numb the area, 18 g needle, neg for paresthesia, test dose given, 1.5% xylocaine 1:200k epi (4cc), 0.2% Ropivacaine bolus ml (5cc), placed PCEA, no systemic response, sterile dressing applied, L.U.D. no apparent complications and 0.2% Ropiavacaine @ mls/hr (11cc/hour) Additional Comments: Pt tolerated well. has good pain relief Documented by User: Malcom Shukla 09/28/22 03:23 Anesthesia Procedures Procedure/Date: 09/28/22
--- NOTE | 2022-09-28 00:37 | PM.OBGYPN ---
MOTHER'S HELPER Subjective Subjective: Interval history: Patient complained of pain and pressure, anesthesia was called and epidural replaced. Patient comfortable now. Cervix?6 cm / 90%/-2 vtx EFM?category 1 with contractions q 2 to 3 minutes. AROM with clear fluid noted. Labor: Station: -2 Amniotic Membrane Status: Intact Monitor Mode: External Contraction Pattern: Irregular Vitals/I&O/Wt Last Vital Signs Pulse 71 09/28/22 00:33 Resp 16 09/27/22 18:13 BP 100/60 09/28/22 00:33 Pulse Ox 93 09/28/22 00:12 O2 Del Method 09/27/22 21:49 09/27/22 09/27/22 09/28/22 14:59 22:59 06:59 Intake Total 0.267 / 0.267 Balance 0.267 / 0.267 Weight last 48 hrs Weight 57.606 kg Physical Exam Urinary Catheter Management: Lebron: Cath Placed During This Visit: yes Urinary Catheter Date of Insertion: 09/27/22 Urinary Catheter Time of Insertion: 21:02 Data 09/27/22 17:45 A&P Assessment and plan (1) Supervision of normal : (2) Gestational diabetes: Plan A. 1. 37 weeks gestation in active labor P. 1. Continue present care Attestations Medical Necessity Statement*: Management of labor Coding Level of Care Code Acute Code for Chg Fwd Diagnoses Supervision of normal Z34.90 Gestational diabetes O24.419
[2022-09-28] MEDS: oxytocin 30 UNIT/500 ML BAG 999 UNIT IV (01:49)
--- NOTE | 2022-09-28 01:55 | P.PCNOB_ITS ---
Delivery Note: Date of delivery: September 28, 2022 Pre-delivery diagnoses: 27-year-old G3, P2 at 37.2-week IUP Early labor GBS negative Gestational diabetes?diet controlled History of marijuana use Post-delivery diagnoses: S/p viable female Procedure: 27-year-old female G3, P3 delivered a viable baby girl OA presentation followed by the anterior and posterior shoulders with the remainder of the baby's body to follow. Spontaneous robust cry was noted. Delayed cord clamping, the cord was then clamped and cut and baby placed on the mother's abdomen. Nursing staff attended to baby drying and stimulating, followed by skin to skin on mother's chest. Three-vessel cord was noted, cord blood obtained and handed off. The uterus was massaged and the placenta presented in a Brink presentation with trailing membranes. Pitocin IV solution was given in a bolus manner. The uterus and vaginal vault were explored, and a few clots removed. No lacerations were noted . The uterus was massaged and firmed well. Op report anesthesia: Epidural Delivering Physician: Abby Blas DO Estimated blood loss (mL): 300 Findings: Viable baby girl Apgars 9/9 weight?5#13 Delivery: viable baby girl Post-Delivery Status: Stable History History History 3 Term 2 0 Miscarriages/Ectopic 0 Living Children 2 A&P Assessment and plan (1) Supervision of normal : A. 1. Spontaneous vaginal delivery P. 1. Routine orders, fasting blood sugar at 6 AM (2) Gestational diabetes: Coding Level of Care Code Acute Code for Chg Fwd Diagnoses Supervision of normal Z34.90 Gestational diabetes O24.419
--- NOTE | 2022-09-28 03:23 | ANE.PACU2 ---
Inpatient post-anesthesia follow up: Airway intact: Yes Vital signs: Temperature 96.8 F Pulse Rate 72 Respiratory Rate 18 Blood Pressure 115/71 Pulse Oximetry 97 Oxygen Delivery Me thod Room Air Oxygen Flow Rate Fraction of Inspir ed Oxygen Hydration adequate: Yes Nausea and vomiting: No Pain level: 2 Mental status: Baseline
[2022-09-28] MEDS: lanolin oint 7 gm 1 APPLIC TOPICAL (06:47)
[2022-09-28] MEDS: benzocaine-menthol 78 gm Canister 1 SPRAY TOPICAL (06:47)
[2022-09-28] MEDS: prenatal vitamin Capsule 1 CAP PO (08:34)
[2022-09-28] MEDS: ibuprofen Oral Susp 100 mg/5mL UDC 600 MG PO ×2 (13:01→19:09)
[2022-09-28 15:02] LABS: Hematocrit 34.9 % (37.0-47.0); Hemoglobin 10.1 g/dL (11.5-15.3); Mean Corpuscular HGB Conc 28.9 g/dL (30.0-36.0); Mean Corpuscular Hemoglobin 24.8 pg (28.0-34.0); Mean Corpuscular Volume 85.5 fl (81-99); Mean Platelet Volume 11.5 fL (7.4-10.4); Platelet Count 199 10^3/cmm (130-400); Red Blood Count 4.08 10^6/uL (4.1-5.3); Red Cell Distribution Width 14.5 % (12.1-15.1); White Blood Count 8.7 10^3/uL (4.0-10.0)
--- NOTE | 2022-09-28 22:24 | PM.OBGYPN ---
FELT STRIP FINISHER Subjective Subjective: Interval history: Patient doing well s/p earlier this a.m., patient denies headaches blurred vision abdominal pain chest pain or shortness of breath. Patient is tolerating regular diet voiding and caring for without nursing assistance. VSS, afebrile Abdomen?soft, fundus firm, lochia light. Extremities?no edema Labor: Station: +2 Amniotic Membrane Status: Ruptured Monitor Mode: External Contraction Pattern: Irregular Vitals/I&O/Wt Last Vital Signs Temp 98.2 F 09/28/22 22:16 Pulse 81 09/28/22 22:16 Resp 18 09/28/22 22:16 BP 97/66 09/28/22 22:16 Pulse Ox 98 09/28/22 22:16 O2 Del Method 09/28/22 22:16 09/28/22 09/28/22 09/28/22 06:59 14:59 22:59 Intake Total 1547.967 / 1547.967 800 / 800 499.733 / 1299.733 Output Total 100 / 100 Balance 1447.967 / 1447.967 800 / 800 499.733 / 1299.733 Weight last 48 hrs Weight 57.606 kg Physical Exam Urinary Catheter Management: Lebron: Cath Placed During This Visit: yes, but has since been removed by the nurse Reason for Continuing Indwelling Catheter: Decision to DC Catheter Urinary Catheter Date of Insertion: 09/27/22 Urinary Catheter Time of Insertion: 21:02 Date Urinary Catheter Removed: 09/28/22 Time Urinary Catheter Discontinued: 01:35 Data 09/28/22 14:43 A&P Assessment and plan (1) Supervision of normal : A. S/p viable female at 37.3 weeks gestation P. Continue care, fasting blood sugar in the a.m. Attestations Medical Necessity Statement*: Management of labor and care Coding Level of Care Code Acute Code for Chg Fwd Diagnoses Supervision of normal Z34.90
[2022-09-29 04:20] VITALS: BP 92/66; PULSE 67; RESP 17; TEMP 36.7; O2SAT 96
[2022-09-29 08:10] LABS: Glucose Point of Care 77 mg/dL (70-110)
--- NOTE | 2022-09-29 08:23 | PM.OBGYDC ---
Discharge Providers B2B MANAGED SERVICE SALES EXEC Date of Admission: 09/27/22 22:00 Date of Discharge: 09/29/22 Attending Provider at Admission: Tila Blas DO Attending Provider at Discharge: Tila Blas DO Primary B2B MANAGED SERVICE SALES EXEC: Dr. Rollins Diagnoses at Discharge Discharge Diagnosis (1) Supervision of normal : Details from hospital stay: 27-year-old female G3, P3 status post spontaneous vaginal delivery recovering well with no complaints. Patient denies headaches blurred vision shortness of breath or abdominal pain. She is breast and bottlefeeding. Patient has history of gestational diabetes (diet-controlled) her fasting blood sugar this morning 77. Patient denies any further nausea vomiting, and has had no acute anxiety episodes. VSS, afebrile Abdomen?soft, fundus firm. Lochia light Extremities?no edema, negative Homans' sign Discharge expectations and orders reviewed with patient in great extent including no heavy lifting pushing or pulling no sex douching or tampons x6 weeks. Patient is encouraged to continue her vitamins daily and iron twice daily. She is discouraged to use marijuana which was positive in her urine drug screen. Patient understands and agrees to comply. Patient is being discharged today but baby is being watched longer because of decrease in body weight, therefore she will be allowed to rooming in. Status: Acute Reason for Visit Reason for Visit: Abdominal pain Brief History: Resolved Hospital Course Hospital Course See above Information Peripartum Data: Infant Delivery Method: Vaginal Physical Exam Urinary Catheter Management: Lebron: Cath Placed During This Visit: yes, but has since been removed by the nurse Reason for Continuing Indwelling Catheter: Decision to DC Catheter Urinary Catheter Date of Insertion: 09/27/22 Urinary Catheter Time of Insertion: 21:02 Date Urinary Catheter Removed: 09/28/22 Time Urinary Catheter Discontinued: 01:35 History History History 3 Term 2 0 Miscarriages/Ectopic 0 Living Children 2 Discharge Data Studies Completed and Pending Laboratory Results WBC 8.7 10^3/uL (4.0-10.0) 09/28/22 14:43 RBC 4.08 10^6/uL (4.1-5.3) L 09/28/22 14:43 Hgb 10.1 g/dL (11.5-15.3) L 09/28/22 14:43 Hct 34.9 % (37.0-47.0) L 09/28/22 14:43 MCV 85.5 fl (81-99) D 09/28/22 14:43 MCH 24.8 pg (28.0-34.0) L 09/28/22 14:43 MCHC 28.9 g/dL (30.0-36.0) L D 09/28/22 14:43 RDW 14.5 % (12.1-15.1) 09/28/22 14:43 Plt Count 199 10^3/cmm (130-400) 09/28/22 14:43 MPV 11.5 fL (7.4-10.4) H 09/28/22 14:43 Neut % (Auto) 89.5 % 09/27/22 17:45 Lymph % (Auto) 4.8 % 09/27/22 17:45 [place] % (Auto) 5.1 % 09/27/22 17:45 Eos % (Auto) 0.1 % 09/27/22 17:45 Baso % (Auto) 0.1 % 09/27/22 17:45 Neut # (Auto) 8.57 10^3/uL (1.8-7.7) H 09/27/22 17:45 Lymph # (Auto) 0.5 10^3/uL (0.8-4.8) L 09/27/22 17:45 [place] # (Auto) 0.5 10^3/uL (0.2-0.9) 09/27/22 17:45 Eos # (Auto) 0.0 10^3/uL (0.0-0.8) 09/27/22 17:45 Baso # (Auto) 0.0 10^3/uL (0.0-0.1) 09/27/22 17:45 Nucleated RBC % (auto) 0 % 09/27/22 17:45 Nucleated RBCs # 0.0 /100WBC 09/27/22 17:45 POC Glucose 77 mg/dL (70-110) 09/29/22 07:54 Insulin-like GF I Negative 09/27/22 13:08 Urine Opiates Screen Negative ng/mL (Negative) 09/27/22 13:00 Ur Barbiturates Screen Negative ng/mL (Negative) 09/27/22 13:00 Ur Phencyclidine Scrn Negative ng/mL (Negative) 09/27/22 13:00 Ur Amphetamines Screen Negative ng/mL (Negative) 09/27/22 13:00 U Benzodiazepines Scrn Negative ng/mL (Negative) 09/27/22 13:00 Urine Cocaine Screen Negative ng/mL (Negative) 09/27/22 13:00 U Marijuana (THC) Screen Positive ng/mL (Negative) H 09/27/22 13:00 Vitals Last Vital Signs Temp 98.0 F 09/29/22 04:20 Pulse 67 09/29/22 04:20 Resp 17 09/29/22 04:20 BP 92/66 09/29/22 04:20 Pulse Ox 96 09/29/22 04:20 O2 Del Method 09/29/22 04:20 Discharge Plan Discharge Patient Disposition: Home Condition: Stable Prescriptions: Continued Natavi PNV 13.5 mg iron- 0.5 mg-150 mg capsule 1 cap PO DAILY ferrous sulfate 325 mg (65 mg iron) tablet 325 mg PO DAILY Discharge Orders: Discharge Order (Routine); Ordered 09/29/22 Ordered By: Tila Blas Referrals: Mirna Rollins MD [Physician] - (4 weeks ) Discharge Diet: Regular Discharge Activity: Increase activity as tolerated Patient Instructions: Depression (GEN), Perineal Care (GEN), Bleeding (GEN), Vaginal Delivery (GEN), OB Discharge Report, OB Food/Drug Interaction Guide, OB Care at Home, Opioid Safety, OB Home Care, OB Proud Parent Packet, OB Vaginal Deliveries - [facility], Abnormal Bleeding, Depression Activity Restrictions/Additional Instructions: Pelvic rest x6 weeks Assessment: A 1. S/p at 37.3 weeks gestation viable female 2. Gestational diabetes (diet-controlled) 3. History of drug use during (marijuana) 4. History of abnormal Pap (LGSIL) Plan of Treatment: P. 1. Discharge to home 2. Follow-up in [address] Rollins for care. 3. Continue vitamins 1 p.o. daily and ferrous sulfate twice daily. Discharge Attestations B2B MANAGED SERVICE SALES EXEC Time Spent in Discharge Care*: less than 30 min Coding Level of Care Code Acute Code for Chg Fwd Diagnoses Supervision of normal Z34.90
[2022-09-29 08:53] VITALS: BP 90/59; PULSE 68; RESP 16; TEMP 36.7; O2SAT 96
[2022-09-29] MEDS: ibuprofen Oral Susp 100 mg/5mL UDC 600 MG PO (09:13)
[2022-09-29 11:02] VITALS: BP 90/59; PULSE 68; RESP 16; TEMP 36.7; O2SAT 96
== END 2022-09-29 11:02 | disposition home or self-care (01) | DRG 806 ==
LOC: OPOB 09-28 01:54 → OBGYN 09-28 01:54
PROVIDERS: Admitting Provider Obstetrics & Gynecology; Visit Provider Obstetrics & Gynecology
DX: O24.420 Gestational diabetes mellitus in childbirth, diet controlled (principal); O99.324 Drug use complicating childbirth; Z37.0 Single live birth; O99.344 Other mental disorders complicating childbirth; F12.90 Cannabis use, unspecified, uncomplicated; O99.334 Smoking (tobacco) complicating childbirth; F17.290 Nicotine dependence, other tobacco product, uncomplicated; Z3A.37 37 weeks gestation of pregnancy; F41.8 Other specified anxiety disorders
CPT/HCPCS: 12345; 36415; 36416; 51702; 59025; 59409; 80306; 82962; 83986; 84112; 85025; 85027; 96374; 99211; J2405; J2590; J2795; J3010; J7121

== ENCOUNTER 2023-07-02 08:47 | Emergency (ER) | payer MEDICAID, SELFPAY ==
[2023-07-02 08:56] VITALS: BP 111/64; PULSE 64; RESP 18; TEMP 36.6; O2SAT 99; BMI 18.7
--- NOTE | 2023-07-02 09:02 | ED_ITS ---
HPI - Nausea/Vomiting/Diarrhea 2 General: Chief complaint: Nausea/Vomiting/Diarrhea Stated complaint: vomiting, possible Time Seen by Provider: 07/02/23 08:57 Source: patient and family Mode of arrival: ambulatory Limitations: no limitations History of Present Illness: Patient is a 28-year-old female presents to ED today with a complaint of nausea and vomiting most likely related to . Patient states 2 days ago she had a home positive test. She states since then she has not been able to keep anything down and feels like she is dehydrated. Unknown LMP as she is approximately 9 months . States she did not have a period for approximately 5 to 6 months and since then has only had one back in March. She reports some intermittent abdominal soreness from vomiting but denies pain. She is having normal bowel movements. No fevers. No sick contacts. No poor food exposures. Patient states she followed with the [facility] on her last and plans on doing that again. MD elicited complaint: nausea and vomiting Pertinent past history: other (positive home test) Onset (ago): day(s) Associated nausea: Yes Associated abdominal pain: Yes (states her abdomen feels sore from vomiting) Pain consistency: intermittent Severity: mild Exacerbating factors: eating Relieving factors: none Associated symtoms: Reports nausea; Denies change in vision, chest pain, dizziness, dysuria, headache(s), palpitations or syncope Review of Systems 2 Const: Denies: fever(s) or chills Eyes: Denies: change in vision or blurry vision Card: Denies: chest pain, palpitations, irregular heart rhythm, lightheadedness, syncope or dyspnea on exertion Resp: Denies: dyspnea, productive cough or pain on inspiration GI: Reports: abdominal pain (mild cramping this morning; subsided now), nausea and vomiting; Denies: hematemesis, heartburn, diarrhea, change in bowel habits, hematochezia or melena : Denies: flank pain, difficulty voiding, dysuria, urinary frequency, urinary urgency, urinary hesitancy, vaginal bleeding or vaginal discharge Musc: Denies: neck pain, back pain or joint pain Skin/Breast: Denies: rash Neuro: Denies: headache(s), numbness in extremities, weakness in extremities, sensory changes or dizziness PFS ED 2 PFSH: Medical History History of labor No pertinent past medical history neghx: htn,dm,thyroid,dvt/pe PCP: None Surgical History Hx of vaginal surgery (~2015) scar tissue removed due to pain 6 months . Family History Mother Diabetes Father Diabetes Grandmother Diabetes Maternal and Paternal Grandfather Diabetes Maternal and Paternal Denies family history of Colon cancer Ovarian cancer Heart disease Hypercholesteremia Breast cancer Hypertension Uterine cancer Thyroid disease Stroke Social History Substance/Drug Use: never Physical Exam 2 Const: COMMON NORMALS: no acute distress, average body habitus, patient oriented x3, no limitations, healthy appearing, alert and well nourished G ENERAL APPEARANCE: cooperative ORIENTATION/CONSCIOUSNESS: Yes awake, Yes oriented to person, Yes oriented to place and Yes oriented to time Eye: COMMON NORMALS: no scleral icterus Resp: COMMON NORMALS: normal respiratory effort and clear to auscultation bilaterally AUSCULTATION: clear to auscultation bilaterally Cardio: COMMON NORMALS: regular rate and regular rhythm RATE: regular rate RHYTHM: regular rhythm GI: COMMON NORMALS: Normal to inspection, nondistended, normoactive bowel sounds present, Soft to palpation and no masses INSPECTION: Yes normal to inspection AUSCULTATION: Yes normoactive bowel sounds PALPATION: Yes Soft to palpation, Yes Tenderness to palpation present (GI) (mild soreness throughout abdomen; non-surgical evaluation), No Guarding due to palpation present (GI) and No Rigid due to palpation : COMMON NORMALS: Yes no CVA tenderness BLADDER/KIDNEY EXAM: Yes no CVA tenderness Back/Pelvis: COMMON NORMALS: no CVA tenderness, thoracic and lumbar spine normal to inspection and no thoracic nor lumbar tenderness Extremity: COMMON NORMALS: normal to inspection GENERAL: Yes normal exam except as noted Neuro: LIZ COMA SCALE: document GCS findings Early coma scale eye opening: Spontaneous Early coma scale verbal response: Orientated Liz coma scale motor response: Obey commands Early coma scale total score: 15 COMMON NORMALS: patient oriented x3 and gait normal SENSORIUM/ORIENTATION: Yes alert, Yes oriented to person, Yes oriented to place and Yes oriented to time Skin: COMMON NORMALS: no rashes or lesions noted GENERAL SKIN EXAM: no rashes or lesions noted Course 2 Vital Signs: Vital signs: Vital Signs Temperature 97.8 F 07/02/23 08:56 Pulse Rate 64 07/02/23 08:56 Respiratory Rate 18 07/02/23 08:56 Blood Pressure 111/64 07/02/23 08:56 Pulse Oximetry 99 07/02/23 08:56 Oxygen Delivery Me thod Room Air 07/02/23 08:56 MDM - Nausea/Vomiting/Diarrhea Medical Decision Making Patient is a 28-year-old female here for nausea and vomiting related to . She is not having any vaginal bleeding. Denies severe pelvic pain. She has some very mild abdominal soreness from vomiting over the past 48 hours. At this time I have no concern for an ectopic /ruptured ectopic. Vital signs are normal. Blood work showing dehydration but otherwise unremarkable. [place] [address]212 so she is probably at least 6 wks along. No known LMP so will need dating US through [facility]. She feels better after IV Benadryl and fluids given here. Case management made to get her set up with [facility] for further OB care. Strict return ED precautions given. Will place her on B6/doxylamine to help with her nausea and vomiting. Lab Data 07/02/23 09:18 07/02/23 09:18 Laboratory Results WBC 9.05 10^3/uL (3.29-11.43) 07/02/23 09:18 RBC 4.94 10^6/uL (3.85-5.65) 07/02/23 09:18 Hgb 13.30 g/dL (11.27-16.99) 07/02/23 09:18 Hct 41.4 % (36-47) 07/02/23 09:18 MCV 83.8 fl (85-98) L 07/02/23 09:18 MCH 26.9 pg (27-33) L 07/02/23 09:18 MCHC 32.1 g/dL (30-55) 07/02/23 09:18 RDW 13.4 % (12.1-15.1) 07/02/23 09:18 Plt Count 302 10^3/cmm (157-399) 07/02/23 09:18 MPV 10.3 fL (7.4-10.4) 07/02/23 09:18 Neut % (Auto) 74.2 % 07/02/23 09:18 Lymph % (Auto) 16.6 % 07/02/23 09:18 [place] % (Auto) 8.2 % 07/02/23 09:18 Eos % (Auto) 0.4 % 07/02/23 09:18 Baso % (Auto) 0.2 % 07/02/23 09:18 Neut # (Auto) 6.71 10^3/uL (1.8-7.7) 07/02/23 09:18 Lymph # (Auto) 1.5 10^3/uL (0.8-4.8) 07/02/23 09:18 [place] # (Auto) 0.7 10^3/uL (0.2-0.9) 07/02/23 09:18 Eos # (Auto) 0.0 10^3/uL (0.0-0.8) 07/02/23 09:18 Baso # (Auto) 0.0 10^3/uL (0.0-0.1) 07/02/23 09:18 Nucleated RBC % (auto) 0 % 07/02/23 09:18 Nucleated RBCs # 0.0 /100WBC 07/02/23 09:18 Sodium 136 mmol/L (136-145) 07/02/23 09:18 Potassium 4.0 mmol/L (3.5-5.1) 07/02/23 09:18 Chloride 100 mmol/L (98-107) 07/02/23 09:18 Carbon Dioxide 18 mmol/L (22-29) L 07/02/23 09:18 Anion Gap 22.0 (5-19) H 07/02/23 09:18 BUN 11 mg/dL (6-20) 07/02/23 09:18 Creatinine 0.6 mg/dL (0.5-0.9) 07/02/23 09:18 GFR Calculation 120.8 mL/min (90-130) 07/02/23 09:18 Glucose 65 mg/dL (65-115) 07/02/23 09:18 Calculated Osmolality 280 mOsm/kg (285-295) L 07/02/23 09:18 Calcium 9.5 mg/dL (8.5-10.5) 07/02/23 09:18 Total Bilirubin 0.7 mg/dL (0.15-1.2) 07/02/23 09:18 AST 20 U/L (0-32) 07/02/23 09:18 ALT 16 U/L (0-33) 07/02/23 09:18 Alkaline Phosphatase 78 U/L (35-105) 07/02/23 09:18 Total Protein 7.5 g/dL (6.6-8.7) 07/02/23 09:18 Albumin 4.2 g/dL (3.5-5.2) 07/02/23 09:18 Globulin 3.3 g/dL (1.3-4.6) 07/02/23 09:18 Ser , Semi-Qnt 65488.00 mIU/mL 07/02/23 09:18 Urine Color Yellow (Yellow) 07/02/23 09:45 Urine Appearance Hazy (CLEAR) A 07/02/23 09:45 Urine pH 5 (5-7) 07/02/23 09:45 Ur Specific [place] 1.025 (1.005-1.030) 07/02/23 09:45 Urine Protein Neg (Negative) 07/02/23 09:45 Urine Glucose (UA) Norm (Normal) 07/02/23 09:45 Urine Ketones 3+ (Negative) H 07/02/23 09:45 Urine Blood Neg (Negative) 07/02/23 09:45 Urine Nitrate Negative (Negative) 07/02/23 09:45 Urine Bilirubin Neg (Negative) 07/02/23 09:45 Urine Urobilinogen Norm mg/dL (Negative) 07/02/23 09:45 Ur Leukocyte Esterase Negative (Negative) 07/02/23 09:45 Urine RBC 0-4 /hpf (0-2) H 07/02/23 09:45 Urine WBC 0-4 /hpf (0-5) H 07/02/23 09:45 Ur Squamous Epith Cells 15-25 /hpf (0-5) H 07/02/23 09:45 Amorphous Sediment Not Reportable 07/02/23 09:45 Urine Bacteria 2+ /hpf (NONE) H 07/02/23 09:45 No radiology studies performed this visit Discharge Plan Discharge Patient Disposition: Home Clinical Impression: Nausea/vomiting in Condition: Stable Prescriptions: New Unisom (doxylamine) 25 mg tablet 25 mg PO .qhs PRN (Reason: nausea/vomiting) Qty: 30 0RF pyridoxine (vitamin B6) 25 mg tablet 25 mg PO TID Qty: 30 0RF No Action ondansetron HCl 8 mg tablet 8 mg PO Q8H PRN (Reason: nausea and vomiting) Qty: 10 0RF Discharge Orders: Discharge ED (Routine); Ordered 07/02/23 Ordered By: Bernie Zapata Referrals: Bonita Márquez LPN [Primary Care Provider] - Patient Instructions: Acute Nausea and Vomiting (DC) Activity Restrictions/Additional Instructions: As we discussed I have placed a case management referral to get you set up with the women[facility] health clinic for further OB care. You need to return the emergency department for severe abdominal pain, vaginal bleeding, continued nausea and vomiting, generally feeling worse or unwell, or any other concerns you may have. Coding Level of Care Code ED Lead Recreation Assistant for Clementine Jj
[2023-07-02 09:30] LABS: Basophils % 0.2 %; Eosinophils % 0.4 %; Hematocrit 41.4 % (36-47); Lymphocytes # 1.5 10^3/uL (0.8-4.8); Lymphocytes % 16.6 %; Mean Corpuscular HGB Conc 32.1 g/dL (30-55); Mean Corpuscular Hemoglobin 26.9 pg (27-33); Mean Corpuscular Volume 83.8 fl (85-98); Mean Platelet Volume 10.3 fL (7.4-10.4); Monocytes # 0.7 10^3/uL (0.2-0.9); Monocytes % 8.2 %; Neutrophils # 6.71 10^3/uL (1.8-7.7); Neutrophils % 74.2 %; Nucleated Red Blood Cells % 0 %; Platelet Count 302 10^3/cmm (157-399); Red Blood Count 4.94 10^6/uL (3.85-5.65); Red Cell Distribution Width 13.4 % (12.1-15.1); White Blood Count 9.05 10^3/uL (3.29-11.43)
[2023-07-02] MEDS: sodium chloride 0.9% 1,000 ML 999 ML IV (09:47)
[2023-07-02] MEDS: diphenhydrAMINE 50 mg/mL SDV 1mL 25 MG IVP (09:47)
[2023-07-02 09:59] LABS: Alanine Aminotransferase 16 U/L (0-33); Albumin Level 4.2 g/dL (3.5-5.2); Alkaline Phosphatase 78 U/L (35-105); Aspartate Amino Transferase 20 U/L (0-32); Blood Urea Nitrogen 11 mg/dL (6-20); Calcium 9.5 mg/dL (8.5-10.5); Carbon Dioxide 18 mmol/L (22-29); Chloride 100 mmol/L (98-107); Globulin 3.3 g/dL (1.3-4.6); Glomerular Filtration Rate 120.8 mL/min (90-130); Glucose 65 mg/dL (65-115); Osmolality Calculated 280 mOsm/kg (285-295); Sodium 136 mmol/L (136-145); Total Bilirubin 0.7 mg/dL (0.15-1.2); Total Protein 7.5 g/dL (6.6-8.7)
[2023-07-02 10:10] LABS: Add Urine Culture? No; Add Urine Microscopic? YES; Bacteria Urine 2+ /hpf; Bilirubin Urine Neg (Negative); Blood Urine Neg (Negative); Glucose Urine UA Norm (Normal); Ketones Urine 3+ (Negative); Leukocyte Esterase Urine Negative (Negative); Nitrate Urine Negative (Negative); Protein Urine Neg (Negative); RBC Urine 0-4 /hpf (0-2); Specific Gravity, Urine 1.025 (1.005-1.030); Squamous Epithelial Cell Urine 15-25 /hpf (0-5); Urine Appearance Hazy (CLEAR); Urine Color Yellow (Yellow); Urobilinogen Urine Norm (Negative); WBC Urine 0-4 /hpf (0-5); pH Urine 5 (5-7)
--- NOTE | 2023-07-04 23:44 | DCPLANNER ---
message ent to OBGYN for a follow up appointment for
== END 2023-07-02 11:27 | disposition home or self-care (01) ==
PROVIDERS: Emergency Provider Physician Assistant
DX: O21.8 Other vomiting complicating pregnancy (principal); Z3A.01 Less than 8 weeks gestation of pregnancy
CPT/HCPCS: 80053; 81001; 84702; 85025; 96361; 96374; 99284; J1200; J7030

== ENCOUNTER → 2023-07-07 09:00 | Outpatient (BNVA) | payer MEDICAID, SELFPAY | PROVIDERS: Visit Provider Nurse Practitioner Women's Health | DX: Z32.00 Encounter for pregnancy test, result unknown (principal) | CPT/HCPCS: 81025 ==

== ENCOUNTER → 2023-07-28 08:49 | Outpatient (BNVA) | payer MEDICAID, SELFPAY | PROVIDERS: Visit Provider Nurse Practitioner Women's Health | DX: Z34.90 Encounter for supervision of normal pregnancy, unspecified, unspecified trimester (principal) | CPT/HCPCS: 80307; 81000; 82950; 84439; 84443; 84481; 85025; 86592; 86762; 86803; 86850; 86900; 87086; 87340; 87806 ==

== ENCOUNTER → 2023-07-30 08:20 | Outpatient (BNVA) | payer MEDICAID, SELFPAY | PROVIDERS: Visit Provider Obstetrics & Gynecology | DX: Z36.87 Encounter for antenatal screening for uncertain dates (principal) | CPT/HCPCS: 76801 ==

== ENCOUNTER → 2023-08-03 13:40 | Outpatient (BNVA) | payer MEDICAID, SELFPAY | PROVIDERS: Visit Provider Obstetrics & Gynecology | DX: Z34.90 Encounter for supervision of normal pregnancy, unspecified, unspecified trimester (principal) | CPT/HCPCS: 81000 ==

== ENCOUNTER → 2023-08-17 07:56 | Outpatient (BNVA) | payer MEDICAID, SELFPAY | PROVIDERS: Visit Provider Obstetrics & Gynecology | DX: Z34.90 Encounter for supervision of normal pregnancy, unspecified, unspecified trimester (principal) | CPT/HCPCS: 81000 ==

== ENCOUNTER → 2023-10-07 14:11 | Outpatient (BNVA) | payer MEDICAID, SELFPAY | PROVIDERS: Visit Provider Obstetrics & Gynecology | DX: Z36.87 Encounter for antenatal screening for uncertain dates (principal) | CPT/HCPCS: 76805 ==

== ENCOUNTER 2023-11-29 20:41 | Outpatient (CLI) | payer MEDICAID, SELFPAY ==
[2023-11-29] VITALS (8 sets, daily range): BP systolic 89–103; BP diastolic 50–64; PULSE 68–84; RESP 17; BMI 21.9
[2023-11-29 22:11] LABS: Bacteria Urine 2+ /hpf; Bilirubin Urine Neg (Negative); Blood Urine Neg (Negative); Glucose Urine UA Norm (Normal); Ketones Urine Negative (Negative); Leukocyte Esterase Urine Negative (Negative); Mucus Urine 2+ /hpf; Nitrate Urine Negative (Negative); Protein Urine Neg (Negative); RBC Urine 0-4 /hpf (0-2); Specific Gravity, Urine 1.015 (1.005-1.030); Urine Appearance Hazy (CLEAR); Urine Color Yellow (Yellow); Urobilinogen Urine Neg (Negative); WBC Urine 0-4 /hpf (0-5); pH Urine 6.5 (5-7)
[2023-11-29 22:12] LABS: Add Urine Culture? No
== END 2023-11-29 23:29 | disposition home or self-care (01) ==
LOC: OPOB 20:45 → OBGYN 20:45
PROVIDERS: Visit Provider Obstetrics & Gynecology
DX: O26.899 Other specified pregnancy related conditions, unspecified trimester (principal); Z3A.00 Weeks of gestation of pregnancy not specified; R10.9 Unspecified abdominal pain
CPT/HCPCS: 81001; 99211

== ENCOUNTER → 2023-12-01 07:55 | Outpatient (BNVA) | payer MEDICAID, SELFPAY | PROVIDERS: Visit Provider Obstetrics & Gynecology | DX: Z34.90 Encounter for supervision of normal pregnancy, unspecified, unspecified trimester (principal) | CPT/HCPCS: 82950; 84315 ==

== ENCOUNTER 2024-01-11 11:49 | Outpatient (CLI) | payer SELFPAY ==
[2024-01-11 11:57] VITALS: BP 111/55; PULSE 77
[2024-01-11 12:05] VITALS: RESP 18; BMI 21.9
[2024-01-11 12:15] LABS: Nitrazine Paper, PH Negative
--- NOTE | 2024-01-11 12:15 | PC.NURSE ---
Patient arrived to triage and reports that her holistic practitioner had checked her cervix and felt like she was 2cm and that her water was broken. Patient reports a gush of fluid at 0730. Patient reports that she has taken several herbal supplements and drank several glasses of magnesium salts to try and stop her contractions but was unable to so patient came here. Patients visitor reports she had checked her cervix x3 times today.
[2024-01-11 14:25] VITALS: BP 108/69; PULSE 71
--- NOTE | 2024-01-11 14:30 | PC.NURSE ---
card writer hand to room with magnesium per Dr. Dickens orders. Patient states they would like some time to discuss the medications (among her and her holistic practitioner) prior to starting. Patient then pressed her call light and stated that they would like to leave right now to travel to [place], [place] so she could deliver the baby closer to the FOB who is in a usp house in [place]. Extensive education provided regarding why patient should not leave and the risks associated with delivering an infant . Patient states she would like to leave. IV removed by Parvin Ball RN. Dr. Cuellar notified and states he would come see her immediately. Dr. Cuellar in to room at 1455. Patient states to Dr. Cuellar that she will still be leaving AMA now.
[2024-01-11 14:50] LABS: Hematocrit 32.4 % (36-47); Mean Corpuscular HGB Conc 32.4 g/dL (30-55); Mean Corpuscular Hemoglobin 27.2 pg (27-33); Mean Corpuscular Volume 83.9 fl (85-98); Mean Platelet Volume 10.6 fL (7.4-10.4); Platelet Count 201 10^3/cmm (157-399); Red Blood Count 3.86 10^6/uL (3.85-5.65); Red Cell Distribution Width 14.6 % (12.1-15.1)
[2024-01-11 15:07] LABS: Alanine Aminotransferase 11 U/L (0-33); Albumin Level 3.3 g/dL (3.5-5.2); Alkaline Phosphatase 84 U/L (35-105); Anion Gap 17.8 (5-19); Aspartate Amino Transferase 17 U/L (0-32); Blood Urea Nitrogen 10 mg/dL (6-20); Calcium 9.1 mg/dL (8.5-10.5); Carbon Dioxide 18 mmol/L (22-29); Chloride 102 mmol/L (98-107); Globulin 3.6 g/dL (1.3-4.6); Glomerular Filtration Rate 149.1 mL/min (90-130); Glucose 65 mg/dL (65-115); Osmolality Calculated 275 mOsm/kg (285-295); Potassium 3.8 mmol/L (3.5-5.1); Sodium 134 mmol/L (136-145); Total Bilirubin 0.3 mg/dL (0.15-1.2); Total Protein 6.9 g/dL (6.6-8.7)
--- NOTE | 2024-01-11 15:10 | P.PN_ITS ---
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 EDC? February 23, 2024 At 33 w 6 d Presented to L&D c/o painful UCs No bleeding, fluid leakage + active movements Patient states she has been perri for one day at home states her friend has been checking her cervix several times at home h/o x three,? uncomplicated Labor: Station: -3 Amniotic Membrane Status: Intact Monitor Mode: Palpation Contraction Pattern: Regular Status: Category I Vitals/I&O/Wt Last Vital Signs Pulse 71 01/11/24 14:25 Resp 18 01/11/24 12:05 BP 108/69 01/11/24 14:25 Weight last 48 hrs Weight 116 lb Physical Exam 2 Narrative: Weight 117? lbs;? 5?1? VS normal General comfortable, awake, alert Lungs: clear Cor: RRR Abd: nontender Cervix: 2 cm / 50% / -2 / posterior was 1 cm two hours ago Ext: no edema External monitor:? + regular UCs, 1 q 10 minutes heart tracing good variability,? + accelerations Data 01/11/24 14:27 01/11/24 14:27 A&P Assessment and plan (1) labor: 33 w 6 d Uterine contractions + cervix progressed from 1 cm to 2 cm Discussed need for tocolysis with patient Patient refuses Magnesium sulfate or Procardia Wants to leave hospital to go to [place] Explained to patient risks of delivery, including, but not limited to, immaturity; developmental problems; immature lungs leading to respiratory distress in baby and Patient states she understands and still wants to leave Patient signed out against medical advice Informed patient that she can return anytime for care PRN Attestations 2 Medical Necessity Statement*: patient at 33 w 6 d with uterine contractions Coding Level of Care Code Acute Code for Chg Fwd Diagnoses labor O60.00 Time Spent (min) 90
[2024-01-11 15:37] LABS: Absolute Eosinophils 0.4 10^3/cmm (0.0-0.7); Absolute Segmented Neutrophil 8.6 10/cmm (1.6-7.1); Eosinophils 3 %; Lymphocytes 17 %; Monocytes Absolute 0.7 10^3/cmm (0.1-0.6); Segmented Neutrophils 72 %; Total Cells Counted 100 (0-100)
[2024-01-11 15:39] LABS: Platelet Estimate Normal (Normal)
== END 2024-01-11 15:02 | disposition left against medical advice (07) ==
LOC: OPOB 11:50 → OBGYN 11:51
PROVIDERS: Visit Provider Obstetrics & Gynecology
DX: O60.03 Preterm labor without delivery, third trimester (principal); Z3A.33 33 weeks gestation of pregnancy
CPT/HCPCS: 36415; 59025; 80053; 83986; 85007; 85027; 86850; 86900; 99211

== ENCOUNTER → 2024-01-18 08:49 | Outpatient (BNVA) | payer SELFPAY | PROVIDERS: Visit Provider Obstetrics & Gynecology | DX: Z34.90 Encounter for supervision of normal pregnancy, unspecified, unspecified trimester (principal) | CPT/HCPCS: 76816; 76820; 84315 ==

== ENCOUNTER 2024-01-28 08:34 | Outpatient (CLI) | payer SELFPAY ==
[2024-01-28 08:48] VITALS: BP 96/56; PULSE 79
[2024-01-28 08:51] VITALS: RESP 15
[2024-01-28 08:54] VITALS: BMI 22.8
[2024-01-28 09:13] VITALS: BP 96/56; PULSE 79; RESP 15
== END 2024-01-28 09:13 | disposition home or self-care (01) ==
LOC: OPOB 08:35 → OBGYN 08:35
PROVIDERS: Visit Provider Obstetrics & Gynecology
DX: O36.5999 Maternal care for other known or suspected poor fetal growth, unspecified trimester, other fetus (principal); Z3A.00 Weeks of gestation of pregnancy not specified
CPT/HCPCS: 59025; 99211

== ENCOUNTER → 2024-02-02 13:08 | Outpatient (BNVA) | payer MEDICAID, SELFPAY | PROVIDERS: Visit Provider Obstetrics & Gynecology | DX: Z01.419 Encounter for gynecological examination (general) (routine) without abnormal findings (principal); O26.90 Pregnancy related conditions, unspecified, unspecified trimester; Z34.90 Encounter for supervision of normal pregnancy, unspecified, unspecified trimester | CPT/HCPCS: 76816; 76820 ==

== ENCOUNTER 2024-02-02 13:40 | Outpatient (CLI) | payer MEDICAID, SELFPAY ==
[2024-02-02] VITALS (10 sets, daily range): BP systolic 102–109; BP diastolic 59–72; PULSE 70–96; RESP 16; TEMP 36.6; BMI 22.4
== END 2024-02-02 16:30 | disposition home or self-care (01) ==
LOC: OPOB 13:43 → OBGYN 13:44
PROVIDERS: Visit Provider Obstetrics & Gynecology
DX: O26.899 Other specified pregnancy related conditions, unspecified trimester (principal); Z3A.00 Weeks of gestation of pregnancy not specified
CPT/HCPCS: 59025; 84315; 99211

== ENCOUNTER 2024-02-03 12:54 | Inpatient (IN) | payer SELFPAY ==
[2024-02-03] VITALS (28 sets, daily range): BP systolic 92–168; BP diastolic 50–119; PULSE 52–136; RESP 16–18; TEMP 36.8–37.4; O2SAT 81–99; BMI 22.1
[2024-02-03] MEDS: lactated ringers 1,000 ML 999 ML IV (12:44)
[2024-02-03] MEDS: fentaNYL 50 mcg/mL INJ 2mL IVP (12:58)
[2024-02-03 13:01] LABS: Basophils % 0.2 %; Eosinophils % 0.3 %; Hematocrit 33.5 % (36-47); Lymphocytes # 1.7 10^3/uL (0.8-4.8); Lymphocytes % 13.3 %; Mean Corpuscular HGB Conc 33.1 g/dL (30-55); Mean Corpuscular Hemoglobin 27.2 pg (27-33); Mean Corpuscular Volume 82.1 fl (85-98); Mean Platelet Volume 10.7 fL (7.4-10.4); Monocytes # 0.9 10^3/uL (0.2-0.9); Monocytes % 7.5 %; Neutrophils # 9.67 10^3/uL (1.8-7.7); Neutrophils % 76.9 %; Nucleated Red Blood Cells % 0 %; Platelet Count 212 10^3/cmm (157-399); Red Blood Count 4.08 10^6/uL (3.85-5.65); Red Cell Distribution Width 14.7 % (12.1-15.1); White Blood Count 12.57 10^3/uL (3.29-11.43)
--- NOTE | 2024-02-03 13:25 | PM.OBGYHP ---
Providers/Chief Complaint Admitting Physician: Chriss Cuellar MD Primary TALENT ACQUISITION PARTNER: Chriss Cuellar MD Chief Complaint: contractions, vomitting, decreased movement HPI TALENT ACQUISITION PARTNER History of Present Illness 28 y.o. EDC February 23, 2024 At 37 w 1 d No complications Presents to L&D c/o painful regular contractions No bleeding / fluid leakage + active movements h/o x three, uncomplicated Present Details : 4 Para: 3 Labs Rubella: Immune RPR: Negative GBS: Negative Medications/Allergies Home Medications Medication Instructions Recorded Confirmed Last Taken Type vit no.37-iron fum 29 mg 1 tab PO 1XD 02/03/24 02/03/24 02/03/24 08:00 History iron-folic acid 1 mg chewable tablet (PreNata) Allergies Allergy/AdvReac Type Severity Reaction Status Date / Time metoclopramide Allergy ADR-Agitate Verified 02/03/24 12:11 d reglan AdvReac Intermediate ADR-Agitate Uncoded 02/03/24 12:11 d PFSH TALENT ACQUISITION PARTNER PFSH: Medical History History of labor No pertinent past medical history neghx: htn,dm,thyroid,dvt/pe PCP: None Surgical History Hx of vaginal surgery (~2015) scar tissue removed due to pain 6 months . Family History Mother Diabetes Father Diabetes Grandmother Diabetes Maternal and Paternal Grandfather Diabetes Maternal and Paternal Denies family history of Colon cancer Ovarian cancer Heart disease Hypercholesteremia Breast cancer Hypertension Uterine cancer Thyroid disease Stroke Social History (Updated 02/02/24 @ 12:25 by Ella Johnson LPN) Smoking and tobacco/nicotine status: current every day tobacco/nicotine user History History History 4 Term 3 0 Miscarriages/Ectopic 0 Living Children 3 Care MAGALY Calculator Estimated Delivery Date Method Current WG Current Estimate 02/23/24 LMP (Uncertain) 37w 1d Vitals/I&O/Wt Last Vital Signs Pulse 60 02/03/24 17:11 Resp 18 02/03/24 12:58 BP 110/72 02/03/24 17:11 Pulse Ox 97 02/03/24 13:30 O2 Del Method Room Air 02/03/24 13:04 02/03/24 02/03/24 02/03/24 06:59 14:59 22:59 Intake Total 12.55 / 12.55 1500 / 1512.55 Balance 12.55 / 12.55 1500 / 1512.55 Weight last 48 hrs Weight 117 lb Physical Exam Narrative: Weight 125 lbs; 5?1? VS normal General: + discomfort due to contractions Lungs: clear Cor: RRR Abd: + palpable contractions Cervix: 4 cm / 50% / -2 / posterior Ext: no edema External monitor: regular [facility] heart tracing good variability, + accelerations Data 02/03/24 12:34 Results Labs OB ([facility]): Obstetrics US 02/02/24 Blood Type A Positive 02/03/24 Antibody Screen Negative 02/03/24 Hct 33.5 % (36-47) L 02/03/24 Hgb 11.10 g/dL (11.27-16.99) L 02/03/24 Rho(D) Type Rh positive 02/03/24 Plt Count 212 10^3/cmm (157-399) 02/03/24 Hep Bs Antigen Non-reactive (Nonreactive) 07/28/23 Hepatitis C Antibody Non-reactive (Nonreactive) 07/28/23 Rubella IgG Antibody 142.3 IU/mL (0.0-10.0) H 07/28/23 RPR Nonreactive (Nonreactive) 07/28/23 HIV 1&2 Ab & HIV 1 Ag Non-reactive (Non-Reactiv) 07/28/23 TSH 0.63 uIU/mL (0.27-4.20) 07/28/23 Free T4 1.48 ng/dL (0.82-1.77) 07/28/23 Cystic Fibrosis Screen Pending 05/07/22 Glucose 1 Hr 50 gm 129 mg/dL (85-140) 12/01/23 Gest Glucose Tolerance mg/dL 08/03/22 Ser , Semi-Qnt 89106.00 mIU/mL 07/02/23 HCG, Qual Positive (Negative) H 07/07/23 Urine Opiates Screen Negative ng/mL (Negative) 02/03/24 Ur Barbiturates Screen Negative ng/mL (Negative) 02/03/24 Ur Phencyclidine Scrn Negative ng/mL (Negative) 02/03/24 Ur Amphetamines Screen Negative ng/mL (Negative) 02/03/24 U Benzodiazepines Scrn Negative ng/mL (Negative) 02/03/24 Urine Cocaine Screen Negative ng/mL (Negative) 02/03/24 U Marijuana (THC) Screen Positive ng/mL (Negative) H 02/03/24 Micro Urine Specimen 07/28/23 Pap Smear Interpret See note A 03/27/22 A&P Assessment and plan (1) Active labor: 37 w 1 d Active labor Fetus reassuring Plan admit h/o x three Rh + Attestations Medical Necessity Statement*: patient at 37 w 1 d with active labor Coding Level of Care Code Acute Code for Chg Fwd Diagnoses Active labor Time Spent (min) 45
[2024-02-03] MEDS: ROPivacaine syringe 100 MG/50 ML SYRINGE 10 MG EPIDURAL (13:34)
--- NOTE | 2024-02-03 13:50 | P.ANESASSM_ITS ---
Pre-Anesthetic Assessment Height/Weight: Height 1.55 m Pulse Resp BP Pulse Ox 62 18 108/55 97 02/03/24 13:44 02/03/24 12:58 02/03/24 13:44 02/03/24 13:30 Epidural Familial anesthetic complications: Epidural was one-sided with second son Was Beta Campos taken within 24 hours: N/A Was Clonidine taken within 24 hours: N/A Last intake: > 8hrs Social No alcohol and No tobacco Exam alert, oriented x 3, clear to auscultation bilaterally and regular rate & rhythm Airway Mallampati: Class II Dentition: full Musc/skel Spina Bifida (mild), scoliosis Anesthetic Plan ASA status: 2 Anesthesia: Regional (specify below) Risk of > 500 ml blood loss (7ml/kg in children): Yes, adequate IV access and fluids planned Medications/Allergies Home Medications Medication Instructions Recorded Confirmed Last Taken Type vit no.37-iron fum 29 mg 1 tab PO 1XD 02/03/24 02/03/24 02/03/24 08:00 History iron-folic acid 1 mg chewable tablet (PreNata) Allergies Allergy/AdvReac Type Severity Reaction Status Date / Time metoclopramide Allergy ADR-Agitate Verified 02/03/24 12:11 d reglan AdvReac Intermediate ADR-Agitate Uncoded 02/03/24 12:11 d Current Medications Generic Name Dose Route Start Last Admin Trade Name Freq PRN Reason Stop Dose Admin Fentanyl 25 - 100 mcg 02/03/24 12:21 02/03/24 12:58 Fentanyl 50 Mcg/Ml Inj 2ml IVP 25 mcg Q1H PRN Administration SEVERE PAIN Lactated Ringer's 1,000 mls @ 999 mls/hr 02/03/24 12:21 02/03/24 12:44 Lactated Ringers IV 999 mls/hr .Q1H1M PRN Administration BLEEDING Ropivacaine 100 mg in 50 mls @ 10 mls/hr 02/03/24 13:15 02/03/24 13:34 Naropin Syringe EPIDURAL 10 mls/hr .Q5H KAYE Administration PFSH Anesthesia Medical History History of labor No pertinent past medical history neghx: htn,dm,thyroid,dvt/pe PCP: None Surgical History Hx of vaginal surgery (~2016) scar tissue removed due to pain 6 months . Family History Mother Diabetes Father Diabetes Grandmother Diabetes Maternal and Paternal Grandfather Diabetes Maternal and Paternal Denies family history of Colon cancer Ovarian cancer Heart disease Hypercholesteremia Breast cancer Hypertension Uterine cancer Thyroid disease Stroke Social History (Updated 02/02/24 @ 12:25 by Ella Johnson LPN) Smoking and tobacco/nicotine status: current every day tobacco/nicotine user Data Anesthesia 02/03/24 12:34 Short CBC 02/03/24 Range/Units 12:34 WBC 12.57 H (3.29-11.43) 10^3/uL Hgb 11.10 L (11.27-16.99) g/dL Hct 33.5 L (36-47) % MCV 82.1 L (85-98) fl Plt Count 212 (157-399) 10^3/cmm Neut % (Auto) 76.9 % Neut # (Auto) 9.67 H (1.8-7.7) 10^3/uL Blood Bank 02/03/24 12:34 Blood Type A Positive Rho(D) Type Rh positive Cardiac Studies: 2 No Data to Display
--- NOTE | 2024-02-03 13:55 | P.ANES_ITS ---
Anesthesia Procedures Procedure/Date: 02/03/24 Epidural: Time Out Performed: Yes Consents Signed: Procedure Consent Consent: requested by attending/covering physician, from patient, from other, risks and benefits reviewed, patient agrees to proceed and emergency procedure Lumbar Level: L3-L4 Epidural position: sitting Epidural procedure: michael rile prep of area, 1% lidocaine to numb the area, 18 g needle, negative for paresthesia passed, neg for paresthesia, test dose given, 1.5% xylocaine 1:200k epi (5), 0.2% Ropivacaine bolus ml (5 cc), placed PCEA, no systemic response, sterile dressing applied, L.U.D. no apparent complications and 0.2% Ropiavacaine @ mls/hr (10) Additional Comments: JC at 4 cm, threaded to 10 cm. Patient denoted more numbness setting up on r side, though still having significant vaginal pressure with contractions. States much more tolerable.
[2024-02-03] MEDS: oxytocin 30 UNIT/500 ML BAG 600 UNIT IV (13:59)
--- NOTE | 2024-02-03 14:50 | PM.DELIVERY ---
Delivery Note: Date of delivery: February 03, 2024 Pre-delivery diagnoses: 37 w 1 d active labor Post-delivery diagnoses: 37 w 1 d active labor vaginal delivery Procedure: vaginal delivery Op report anesthesia: Epidural Delivering Physician: Chriss Cuellar MD Estimated blood loss (mL): 300 Findings: , vigorous infant Cord gases obtained No episiotomy / lacerations EBL: 300 cc No complications Pre-Delivery Course: normal labor course Delivery: vaginal Post-Delivery Status: good History History History 4 Term 3 0 Miscarriages/Ectopic 0 Living Children 3 A&P Assessment and plan (1) Vaginal delivery: Coding Level of Care Code Acute Code for Chg Fwd Diagnoses Vaginal delivery O80 Time Spent (min) 60
[2024-02-03] MEDS: lanolin oint 7 gm 1 APPLIC TOPICAL (17:16)
[2024-02-03] MEDS: HYDROcodone-acetaminophen 5-325 mg Tablet PO (17:16)
[2024-02-03] MEDS: docusate sodium 100 mg Capsule PO (17:17)
[2024-02-03] MEDS: benzocaine-menthol 78 gm Canister 1 SPRAY TOPICAL (17:17)
[2024-02-03 18:00] LABS: Amphetamines Screen Urine Negative (Negative); Barbiturates Screen Urine Negative (Negative); Benzodiazepines Screen Urine Negative (Negative); Cocaine Screen Urine Negative (Negative); Opiate Screen Urine Negative (Negative); PCP Screen Urine Negative (Negative); THC Screen Urine Positive (Negative)
--- NOTE | 2024-02-03 18:36 | PC.NURSE ---
Call placed to [facility] at this time. Patient reports she has a verbal custody agreement of her other two children. Her second child was adopted by his maternal grandmother and so she does not see or have custody of that child.
[2024-02-03] MEDS: ibuprofen 800 mg tablet PO (21:25)
[2024-02-04 03:18] LABS: Hematocrit 30.5 % (36-47); Mean Corpuscular HGB Conc 32.8 g/dL (30-55); Mean Corpuscular Hemoglobin 27.3 pg (27-33); Mean Corpuscular Volume 83.3 fl (85-98); Mean Platelet Volume 10.8 fL (7.4-10.4); Platelet Count 191 10^3/cmm (157-399); Red Blood Count 3.66 10^6/uL (3.85-5.65); Red Cell Distribution Width 14.6 % (12.1-15.1); White Blood Count 14.65 10^3/uL (3.29-11.43)
[2024-02-04 03:45] VITALS: BP 93/60; PULSE 70; RESP 17; TEMP 36.8
--- NOTE | 2024-02-04 07:35 | P.DS_ITS ---
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 No complaints, pt ambulating and caring for infant without assistance. Breast feeding. Pt had desired Tubal Sterilization, Risk and Benefits and failure rate reviewed as well as surgical procedure. Pt states she is afraid of procedure and wants to wait and talk to family more. Contraception reviewed and pt request to continue Depo, which she used in the past. Discharge orders reviewed, pt encouraged to continue vits and iron. Status: Acute Reason for Visit Reason for Visit: contractions, vomitting, decreased movement Hospital Course Hospital Course see above Information Peripartum Data: Infant Delivery Method: Vaginal Physical Exam Back/Pelvis: OTHER: Abd- soft, Fundus below umbilicus, nontender Lochia light. Extremity: COMMON NORMALS: normal to inspection, no clubbing, cyanosis or edema and no calf tenderness History History History 4 Term 4 0 Miscarriages/Ectopic 0 Living Children 4 Discharge Data Studies Completed and Pending Laboratory Results WBC 14.65 10^3/uL (3.29-11.43) H 02/04/24 03:10 RBC 3.66 10^6/uL (3.85-5.65) L 02/04/24 03:10 Hgb 10.00 g/dL (11.27-16.99) L 02/04/24 03:10 Hct 30.5 % (36-47) L 02/04/24 03:10 MCV 83.3 fl (85-98) L 02/04/24 03:10 MCH 27.3 pg (27-33) 02/04/24 03:10 MCHC 32.8 g/dL (30-55) 02/04/24 03:10 RDW 14.6 % (12.1-15.1) 02/04/24 03:10 Plt Count 191 10^3/cmm (157-399) 02/04/24 03:10 MPV 10.8 fL (7.4-10.4) H 02/04/24 03:10 Neut % (Auto) 76.9 % 02/03/24 12:34 Lymph % (Auto) 13.3 % 02/03/24 12:34 [place] % (Auto) 7.5 % 02/03/24 12:34 Eos % (Auto) 0.3 % 02/03/24 12:34 Baso % (Auto) 0.2 % 02/03/24 12:34 Neut # (Auto) 9.67 10^3/uL (1.8-7.7) H 02/03/24 12:34 Lymph # (Auto) 1.7 10^3/uL (0.8-4.8) 02/03/24 12:34 [place] # (Auto) 0.9 10^3/uL (0.2-0.9) 02/03/24 12:34 Eos # (Auto) 0.0 10^3/uL (0.0-0.8) 02/03/24 12:34 Baso # (Auto) 0.0 10^3/uL (0.0-0.1) 02/03/24 12:34 Nucleated RBC % (auto) 0 % 02/03/24 12:34 Nucleated RBCs # 0.0 /100WBC 02/03/24 12:34 Urine Opiates Screen Negative ng/mL (Negative) 02/03/24 17:30 Ur Barbiturates Screen Negative ng/mL (Negative) 02/03/24 17:30 Ur Phencyclidine Scrn Negative ng/mL (Negative) 02/03/24 17:30 Ur Amphetamines Screen Negative ng/mL (Negative) 02/03/24 17:30 U Benzodiazepines Scrn Negative ng/mL (Negative) 02/03/24 17:30 Urine Cocaine Screen Negative ng/mL (Negative) 02/03/24 17:30 U Marijuana (THC) Screen Positive ng/mL (Negative) H 02/03/24 17:30 Blood Type A Positive 02/03/24 12:34 Rho(D) Type Rh positive 02/03/24 12:34 Antibody Screen Negative 02/03/24 12:34 Vitals Last Vital Signs Temp 98.3 F 02/04/24 03:45 Pulse 70 02/04/24 03:45 Resp 17 02/04/24 03:45 BP 93/60 02/04/24 03:45 Pulse Ox 97 02/03/24 13:30 O2 Del Method Room Air 02/03/24 13:04 Results Labs OB ([facility]): Obstetrics US 02/02/24 Blood Type A Positive 02/03/24 Antibody Screen Negative 02/03/24 Hct 30.5 % (36-47) L 02/04/24 Hgb 10.00 g/dL (11.27-16.99) L 02/04/24 Rho(D) Type Rh positive 02/03/24 Plt Count 191 10^3/cmm (157-399) 02/04/24 Hep Bs Antigen Non-reactive (Nonreactive) 07/28/23 Hepatitis C Antibody Non-reactive (Nonreactive) 07/28/23 Rubella IgG Antibody 142.3 IU/mL (0.0-10.0) H 07/28/23 RPR Nonreactive (Nonreactive) 07/28/23 HIV 1&2 Ab & HIV 1 Ag Non-reactive (Non-Reactiv) 07/28/23 TSH 0.63 uIU/mL (0.27-4.20) 07/28/23 Free T4 1.48 ng/dL (0.82-1.77) 07/28/23 Cystic Fibrosis Screen Pending 05/07/22 Glucose 1 Hr 50 gm 129 mg/dL (85-140) 12/01/23 Gest Glucose Tolerance mg/dL 08/03/22 Ser , Semi-Qnt 81738.00 mIU/mL 07/02/23 HCG, Qual Positive (Negative) H 07/07/23 Urine Opiates Screen Negative ng/mL (Negative) 02/03/24 Ur Barbiturates Screen Negative ng/mL (Negative) 02/03/24 Ur Phencyclidine Scrn Negative ng/mL (Negative) 02/03/24 Ur Amphetamines Screen Negative ng/mL (Negative) 02/03/24 U Benzodiazepines Scrn Negative ng/mL (Negative) 02/03/24 Urine Cocaine Screen Negative ng/mL (Negative) 02/03/24 U Marijuana (THC) Screen Positive ng/mL (Negative) H Micro Urine Specimen 07/28/23 Pap Smear Interpret See note A 03/27/22 Discharge Plan Discharge Patient Disposition: Home Condition: Stable Prescriptions: Continued PreNata 29 mg iron- 1 mg Tablet,Chewable 1 tab PO 1XD Discharge Orders: Discharge Order (Routine); Ordered 02/04/24 Ordered By: Tila Blas Discharge Diet: Regular Discharge Activity: Limit activity as instructed Patient Instructions: Depression (DC), Opioid Safety (DC), Preeclampsia and Eclampsia After Delivery (GEN), Hemorrhage (DC), OB Discharge Report, OB Food/Drug Interaction Guide, Opioid Safety, OB Home Care, OB Vaginal Deliveries - [facility], Abnormal Bleeding Activity Restrictions/Additional Instructions: No heavy lifting, no sexual intercourse x 6 wks. Assessment: s/p female Plan of Treatment: Depo Provera 150mg before DC F/U 4-6 wks for PP visit. 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
[2024-02-04] MEDS: docusate sodium 100 mg Capsule PO (08:44)
[2024-02-04] MEDS: PRENATAL VIT NO.130/IRON/FOLIC 1 EACH TABLET PO (08:44)
[2024-02-04] MEDS: ibuprofen 800 mg tablet PO (08:44)
[2024-02-04 09:27] VITALS: BP 111/75; PULSE 54; RESP 16; O2SAT 98
[2024-02-04] MEDS: medroxyprogesterone 150 mg/ml SDV 1 mL IM (16:32)
[2024-02-04 16:38] VITALS: BP 98/65; PULSE 78; TEMP 36.7
== END 2024-02-04 16:44 | disposition home or self-care (01) | DRG 807 ==
LOC: OPOB 12:55 → OBGYN 12:55
PROVIDERS: Admitting Provider Obstetrics & Gynecology; Visit Provider Obstetrics & Gynecology
DX: O99.334 Smoking (tobacco) complicating childbirth (principal); Z37.0 Single live birth; F17.200 Nicotine dependence, unspecified, uncomplicated; Z3A.37 37 weeks gestation of pregnancy
CPT/HCPCS: 36415; 59025; 59409; 80306; 85025; 85027; 86850; 86900; 96372; 98960; 99211; J1050; J2590; J2795; J3010; J7120

== ENCOUNTER 2024-04-13 06:51 | Day surgery (SDC) | payer OTHER, SELFPAY ==
--- NOTE | 2024-04-12 23:06 | W.PM.OPSFHP ---
Same Day Surgery H&P Indication for Procedure/HPI DATE OF PROCEDURE: April 12, 2024 CHIEF COMPLAINT/INDICATIONFOR SURGICAL PROCEDURE: desires permanent sterilization PREOP DIAGNOSIS: desires permanent sterilization PLANNED PROCEDURE: Operation Date: 04/13/24 08:35 Proposed Procedures p Laparoscopic Salpingectomy partial 74096, Z30.2(Bilateral) - Chriss Cuellar MD 28 y.o. desires permanent sterilization Medications/Allergies* Home Medications Medication Instructions Recorded Confirmed Type vit no.37-iron fum 29 mg 1 tab PO 1XD 02/03/24 04/12/24 History iron-folic acid 1 mg chewable tablet (PreNata) Allergies/Adverse Reactions Allergy/AdvReac Type Severity Reaction Status Date / Time metoclopramide Allergy ADR-Agitate Verified 04/12/24 09:30 d reglan AdvReac Intermediate ADR-Agitate Uncoded 04/12/24 09:30 d Pertinent History/Comorbid Conditions* Medical History (Updated 03/20/24 @ 11:58 by Sully Castillo NP) Active labor History of labor No pertinent past medical history neghx: htn,dm,thyroid,dvt/pe PCP: None Surgical History (Updated 03/06/22 @ 14:31 by ANGELES HudsonN, [facility]NP) Hx of vaginal surgery (~2015) scar tissue removed due to pain 6 months . Family History (Updated 03/06/22 @ 13:49 by Jesi Salgado) Diabetes Mother Father Grandmother Maternal and Paternal Grandfather Maternal and Paternal Denies family history of Colon cancer Ovarian cancer Heart disease Hypercholesteremia Breast cancer Hypertension Uterine cancer Thyroid disease Stroke Social History Smoking and tobacco/nicotine status: current every day tobacco/nicotine user (vapes) Pertinent Exam Findings alert, oriented x 3, clear to auscultation bilaterally and regular rate & rhythm Recommendations Surgery/Procedure today Coding Level of Care Code Acute Code for Chg Fwd Time Spent (min) 30
[2024-04-13] VITALS (13 sets, daily range): BP systolic 89–107; BP diastolic 64–75; PULSE 45–67; RESP 16–99; TEMP 36.2–36.4; O2SAT 95–100; BMI 22.1
[2024-04-13] MEDS: sodium chloride 0.9% 1,000 ML 30 ML IV (07:23)
[2024-04-13] MEDS: scopolamine 1.5 Patch 1 PATCH TRANSDERMA (07:23)
--- NOTE | 2024-04-13 08:31 | ANES.PREANE2 ---
Pre-Anesthetic Assessment Height/Weight: Height 5 ft 1 in Weight 117 lb Temp Pulse Resp BP Pulse Ox O2 Del Method 97.4 F L 62 18 105/67 98 Room Air 04/13/24 07:10 04/13/24 07:10 04/13/24 07:10 04/13/24 07:10 04/13/24 07:10 04/13/24 07:15 Preop Diagnosis: desires permanent sterilization Operation Date: 04/13/24 08:35 Proposed Procedures p Laparoscopic Salpingectomy partial 66395, Z30.2(Bilateral) - Chriss Cuellar MD Was Beta Campos taken within 24 hours: N/A Was Clonidine taken within 24 hours: N/A Last intake: Intake Last Liquid Date 04/12/24 Last Liquid Time 21:00 Last Solid Date 04/12/24 Last Solid Time 21:00 Social Tobacco and No alcohol Exam alert, oriented x 3, clear to auscultation bilaterally and regular rate & rhythm Airway Submandibular: within normal limits Cervical ROM: within normal limits Mallampati: Class I Dentition: full Anesthetic Plan ASA status: 2 Anesthesia: General Other: No prior issues with anesthesia NPO since yesterday evening Smokes nicotine and cigarettes, no inhaler use Denies any cardiac issues METs greater than 4 test negative Plan for GETA Medications/Allergies Home Medications Medication Instructions Recorded Confirmed Last Taken Type vit no.37-iron fum 29 mg 1 tab PO 1XD 02/03/24 04/12/24 04/11/24 History iron-folic acid 1 mg chewable tablet (PreNata) Allergies Allergy/AdvReac Type Severity Reaction Status Date / Time metoclopramide Allergy ADR-Agitate Verified 04/13/24 07:05 d reglan AdvReac Intermediate ADR-Agitate Uncoded 04/13/24 07:05 d Current Medications Generic Name Dose Route Start Last Admin Trade Name Freq PRN Reason Stop Dose Admin Sodium Chloride 1,000 mls @ 30 mls/hr 04/13/24 07:00 04/13/24 07:23 Sodium Chloride 0.9% IV 04/14/24 06:59 30 mls/hr .Q24H KAYE Administration PFSH Anesthesia Medical History Active labor History of labor No pertinent past medical history neghx: htn,dm,thyroid,dvt/pe PCP: None Surgical History Hx of vaginal surgery (~2015) scar tissue removed due to pain 6 months . Family History Mother Diabetes Father Diabetes Grandmother Diabetes Maternal and Paternal Grandfather Diabetes Maternal and Paternal Denies family history of Colon cancer Ovarian cancer Heart disease Hypercholesteremia Breast cancer Hypertension Uterine cancer Thyroid disease Stroke Social History Smoking and tobacco/nicotine status: current every day tobacco/nicotine user (vapes) Data Anesthesia Cardiac Studies: No Data to Display
--- NOTE | 2024-04-13 08:56 | W.PM.OPSUD ---
Surgery/Procedure H&P Update DATE OF PROCEDURE: April 13, 2024 DATE H&P PERFORMED: 04/12/24 H&P UPDATE INFORMATION: I have reviewed H&P completed within last 30 days, I have examined patient prior to procedure and No changes to prior documentation PREOP DIAGNOSIS: desires permanent sterilization PLANNED PROCEDURE: Operation Date: 04/13/24 08:35 Proposed Procedures p Laparoscopic Salpingectomy partial 70474, Z30.2(Bilateral) - Chriss Cuellar MD
--- NOTE | 2024-04-13 10:20 | P.OP_ITS ---
Operative Report Date of procedure: April 13, 2024 Pre-op diagnosis: desires permanent sterilization Post-op diagnosis: same Post-op findings: normal uterus, tubes, and ovaries Procedure done: laparoscopic bilateral partial salpingectomy Implants: none Specimens removed/disposition: bilateral partial fallopian tube segments Surgeon: Chriss Cuellar MD Anesthesia: General Estimated blood loss (mL): 5 Complications: none Findings: normal uterus, tubes, and ovaries Condition: stable Disposition: PACU Brief History: 28 y.o. desires permanent sterilization Procedure: Informed consent was obtained. The patient was taken to the OR and placed on the table. General endotracheal anesthesia was induced. The abdomen and perineum were then prepped and draped in the usual fashion. A 5 mm subumbilical skin incision was made. A 5 mm trocar with sheath was then inserted into the peritoneal cavity under direct visualization with the laparoscope. After confirming intraperitoneal position, pneumoperitoneum was achieved. Two separate 5 mm incisions were made in the right and left mid-quadrants. 5 mm trocars with sheaths were then inserted into the peritoneal cavity under direct visualization with the laparoscope. The right fallopian tube was then identified to its fimbrial end. Starting at the fimbrial end, the mesosalpinx was then coagulated and cut using the Ligasure. A 3-4 cm portion of the right fallopian tube was excised and removed via one of the ports. This was sent to pathology. There was no bleeding seen. Similarly, the left fallopian tube was identified to its fimbrial end. A 3-4 cm portion of the left fallopian tube was excised and removed, sent to pathology. There was no bleeding. All instruments were then removed from the peritoneal cavity after the pneumoperitoneum was allowed to escape. The skin incisions were closed using 3- O chromic in subcuticular fashion. Dermabond was applied. The patient was then placed supine and awakened, taken the the PACU in good condition. Postop condition: stable EBL: 5 cc Complications: none Sponge, needles, and instruments counts correct x two
[2024-04-13] MEDS: fentaNYL 50 mcg/mL INJ 2mL IVP (10:35)
[2024-04-13 11:03] LABS: OR HCG Qualitative Urine Negative (Negative)
[2024-04-13] MEDS: oxyCODONE-APAP 5-325 mg Tablet 1 TAB PO (11:18)
--- NOTE | 2024-04-13 11:38 | ANE.PACU2 ---
Inpatient post-anesthesia follow up: Airway intact: Yes Vital signs: Temperature 97.6 F Pulse Rate 45 Respiratory Rate 16 Blood Pressure 102/75 Pulse Oximetry 95 Oxygen Delivery Me thod Room Air Oxygen Flow Rate 8 Fraction of Inspir ed Oxygen Hydration adequate: Yes Nausea and vomiting: No Pain level: 1 Mental status: Baseline
== END 2024-04-13 11:38 | disposition home or self-care (01) ==
PROVIDERS: PCP Obstetrics & Gynecology; Visit Provider Obstetrics & Gynecology
PROC: (CPT 58661; principal; 2024-04-13 08:35)
DX: Z30.2 Encounter for sterilization (principal); F17.200 Nicotine dependence, unspecified, uncomplicated
CPT/HCPCS: 58661; 81025; 88302; J0330; J1100; J1170; J1200; J2250; J2405; J2704; J2710; J3010; J3490; J7030